=== PATIENT | female | born 1965 | race African-American/Black ===

== ENCOUNTER 2017-03-25 12:24 | Inpatient (IN) | payer OTHER ==
[2017-03-25 13:56] VITALS: BMI 21.2
--- NOTE | 2017-03-25 15:45 | HP ---
Admission [facility] Chief Complaint: I need help to stop drug use and im tired of this life I lead Allergies/Adverse Reactions: Allergies Allergy/AdvReac Type Severity Reaction Status Date / Time Fish Containing Products Allergy Severe Hives Verified 03/25/17 15:00 shellfish derived Allergy Severe Hives Verified 03/25/17 15:00 turkey Allergy Severe Hives Verified 03/25/17 15:00 No Known Drug Allergies Allergy Verified 03/25/17 15:00 ham Allergy Severe Hives Uncoded 03/25/17 15:00 History of Present Illness: 51 y/ o f pt on MMtp abusing heroin and crack. Exam Limitations: No Limitations - Ebola screening Have you traveled outside of the country in the last 21 days: No Have you had contact with anyone from an Ebola affected area: No Have you been sick,other than usual withdrawal symptoms: No Do you have a fever: No - Review of Systems Constitutional: Malaise, Night Sweats, Changes in sleep, Unintentional Wgt. Loss (30 lbs x 3 months) EENT: reports: Blurred Vision, Hearing Loss (on left) Respiratory: reports: Wheezing Cardiac: reports: No Symptoms Reported GI: reports: Abdominal cramping : reports: No Symptoms Reported Musculoskeletal: reports: Muscle Pain Integumentary: reports: Other (many small scars) Neuro: reports: Headache (migraines), Numbness, Paresthesia (hands) Endocrine: reports: No Symptoms Reported Hematology: reports: No Symptoms Reported Psychiatric: reports: Anxious, Depressed Other Systems: Reviewed and Negative Patient History - Patient Medical History Hx Anemia: Yes Hx Asthma: Yes Hx Chronic Obstructive Pulmonary Disease (COPD): No Hx Cancer: No Hx Cardiac Disorders: No Hx Congestive Heart Failure: No Hx Hypertension: No Hx Hypercholesterolemia: No Hx Pacemaker: No HX Cerebrovascular Accident: No Hx Seizures: No Hx Dementia: No Hx Diabetes: No Hx Gastrointestinal Disorders: No Hx Liver Disease: No Hx Genitourinary Disorders: No Hx Sexually Transmitted Disorders: No Hx Renal Disease (ESRD): No Hx Thyroid Disease: Yes (goiter ) Hx Human Immunodeficiency Virus (HIV): No Hx Hepatitis C: No Hx Depression: Yes Hx Suicide Attempt: No Hx Bipolar Disorder: No Hx Schizophrenia: No - Patient Surgical History Past Surgical History: No - PPD History Documented Results: Negative w/o proof PPD to be Administered?: Yes - Reproductive History Patient is a Female of Child Bearing Age (11 -55 yrs old): Yes Last Menstrual Period: 03/11/17 Patient : No - Smoking Cessation Smoking history: Current every day smoker Have you smoked in the past 12 months: Yes Aproximately how many cigarettes per day: 10 Cigars Per Day: 0 Hx Chewing Tobacco Use: No Initiated information on smoking cessation: Yes 'Breaking Loose' booklet given: 03/25/17 - Substance & Tx. History Hx Alcohol Use: No Hx Substance Use: Yes Substance Use Type: Cocaine, Heroin Hx Substance Use Treatment: Yes - Substances Abused Crack Route: Smoking Frequency: Daily Amount used: $300./week Age of first use: 23 Date of Last Use: 03/24/17 Family Disease History - Family Disease History Family History: Denies Admission Physical Exam S - Vital Signs Vital Signs: Vital Signs - 24 hr 03/25/17 13:54 Temperature 98.4 F Pulse Rate 54 L Respiratory 18 Rate Blood Pressure 88/51 51 y/o f pt aox3 , ambulating in nad , - Physical General Appearance: Yes: Appropriately Dressed, Thin HEENTM: Yes: Normocephalic, Normal Voice, MADDY, Hearing Decreased (on left) Respiratory: Yes: Chest Non-Tender, Lungs Clear, Normal Breath Sounds, No Respiratory Distress Neck: Yes: Supple Breast: Yes: Breast Exam Deferred Cardiology: Yes: Regular Rhythm, Regular Rate, S1, S2 Abdominal: Yes: Normal Bowel Sounds, Non Tender, Flat, Soft Genitourinary: Yes: Within Normal Limits Back: Yes: Decreased Range of Motion, Muscle Spasm Musculoskeletal: Yes: Back pain, Muscle Pain Extremities: Yes: Within Normal Limits Neurological: Yes: dance entertainer II-XII NML intact, Fully Oriented, Alert, Motor Strength 5/5, Normal Response, Numbness Integumentary: Yes: Within Normal Limits Lymphatic: Yes: Within Normal Limits - Diagnostic (1) Crack cocaine use Current Visit: Yes Status: Chronic (2) Heroin abuse Current Visit: Yes Status: Chronic (3) Methadone maintenance therapy patient Current Visit: Yes Status: Chronic (4) Back ache Current Visit: Yes Status: Chronic Qualifiers: Back pain laterality: bilateral (5) H/O: iron deficiency anemia Current Visit: Yes Status: Chronic (6) Nicotine dependence Current Visit: Yes Status: Chronic Qualifiers: Nicotine product type: cigarettes Substance use status: uncomplicated Qualified Code(s): F17.210 - Nicotine dependence, cigarettes, uncomplicated Cleared for Admission [facility] - Detox or Rehab Claeared for Rehab Admission: Yes S Breath Alcohol Content Breath Alcohol Content: 0 Urine Pregancy Test - Result Urine Test Results: Negative- NO Line Present Urine Drug Screen - Results Drug Screen Negative: No Urine Drug Screen Results: THC-Marijuana, KWADWO-Cocaine, OPI-Opiates, MTD- Methadone
[2017-03-25] MEDS ORDERED: MENTHOL/PHENOL 1 EACH UD MM PRN (15:55)
[2017-03-25] MEDS ORDERED: MAGNESIUM CITRATE 300 ML BOTTLE PO PRN (15:55)
[2017-03-25] MEDS ORDERED: P-EPHED 60MG/TRIPROLIDI 2.5MG TABLET PO PRN (15:55)
[2017-03-25] MEDS ORDERED: MAG HYDROX/AL HYDROX/SIMETH 30 ML UNIT-DOSE CUP PO PRN (15:55)
[2017-03-25] MEDS ORDERED: NICOTINE POLACRILEX 4 MG GUM BC PRN (15:55)
[2017-03-25] MEDS ORDERED: hydrOXYzine PAMOATE 25 MG CAPSULE (FP) PO PRN (15:55)
[2017-03-25] MEDS ORDERED: guaiFENesin/D-METHORPHAN HB 10 ML UNIT-DOSE CUPS PO PRN (15:55)
[2017-03-25] MEDS ORDERED: LOPERAMIDE HCL 2 MG CAPSULE PO PRN (15:55)
[2017-03-25] MEDS ORDERED: TUBERCULIN PPD 5 TU/0.1ML VIAL ID ONE (18:42)
[2017-03-25] MEDS: THIAMINE HCL 100 MG TABLET (FP) PO SCH (21:37)
[2017-03-25 23:23] LABS: URINE APPEARANCE CLEAR; URINE BILIRUBIN NEGATIVE (NEGATIVE); URINE BLOOD NEGATIVE (NEGATIVE); URINE COLOR LTYELLOW; URINE GLUCOSE (UA) NEGATIVE (NEGATIVE); URINE KETONE NEGATIVE (NEGATIVE); URINE NITRITE NEGATIVE (NEGATIVE); URINE PROTEIN NEGATIVE (NEGATIVE); URINE UROBILINOGEN NEGATIVE E.U./dl (0.2-1.0)
[2017-03-25 23:26] LABS: URINE LEUK ESTERASE TRACE (NEGATIVE)
[2017-03-25 23:28] LABS: URINE BACTERIA RARE /hpf (NONE SEEN); URINE RBC 1 /hpf (0-3); URINE WBC 2 /hpf (3-5)
[2017-03-26] MEDS ORDERED: METHADONE HCL 10 MG TABLET PO SCH (07:45)
[2017-03-26] MEDS ORDERED: METHADONE HCL 10 MG TABLET ONE (07:56)
[2017-03-26] MEDS ORDERED: METHADONE HCL 40 MG DISPERSABLE TABLET ONE (07:56)
[2017-03-26] MEDS: METHADONE 80 MG, METHADONE 10 MG PO SCH (07:57)
[2017-03-26 10:14] LABS: MCH 21.5 pg (25.7-33.7); MCHC 29.7 g/dl (32.0-36.0); MEAN CELL VOLUME 72.5 fl (80-96); MEAN PLT VOLUME 8.3 fl (7.5-11.1); PLATELET COUNT 240 K/MM3 (134-434); RDW 21.2 % (11.6-15.6); WHITE BLOOD COUNT 5.6 K/mm3 (4.0-10.0)
[2017-03-26] MEDS: PRENATAL VITAMINS W/ FOLIC ACID TABLET (FP) PO SCH (10:19)
[2017-03-26] MEDS: NICOTINE 21 MG/24 HOURS TOPICAL PATCH TD SCH (10:20)
[2017-03-26 10:51] LABS: CALCIUM 8.4 mg/dL (8.5-10.1)
[2017-03-26 10:58] LABS: ALBUMIN 3.2 g/dl (3.4-5.0); ALK PHOS 53 U/L (45-117); ANION GAP 6 (8-16); BILIRUBIN,TOTAL 0.2 mg/dL (0.2-1.0); CO2 29 mmol/L (21-32); COCKROFT - GAULT 64.1835; CREATININE 0.9 mg/dL (0.55-1.02); GLUCOSE,RANDOM 79 mg/dL (74-106); SGOT/AST 15 U/L (15-37); SGPT/ALT 12 U/L (12-78); TOT PROT 6.6 g/dl (6.4-8.2)
[2017-03-26 11:24] LABS: HIV 1 & 2 AB NEGATIVE; HIV 1 AGp24 NEGATIVE
[2017-03-26 13:39] LABS: HYPOCHROMIA 3+; MICROCYTOSIS 1+; TARGET CELLS 1+
[2017-03-26] MEDS: DOCUSATE SODIUM 100 MG CAPSULE (FP) PO SCH ×2 (13:52→21:43)
[2017-03-26] MEDS: FERROUS SO4 325 MG TABLET (FP) PO SCH (17:25)
[2017-03-26] MEDS: IBUPROFEN 400 MG TABLET (FP) PO PRN (18:48)
[2017-03-26] MEDS: THIAMINE HCL 100 MG TABLET (FP) PO SCH (21:42)
[2017-03-27] MEDS ORDERED: METHADONE HCL 40 MG DISPERSABLE TABLET ONE (03:20)
[2017-03-27] MEDS ORDERED: METHADONE HCL 10 MG TABLET ONE (03:20)
[2017-03-27] MEDS: METHADONE 80 MG, METHADONE 10 MG PO SCH (06:42)
[2017-03-27] MEDS: FERROUS SO4 325 MG TABLET (FP) PO SCH ×3 (07:02→17:25)
[2017-03-27] MEDS: IBUPROFEN 400 MG TABLET (FP) PO PRN ×2 (07:02→12:18)
--- NOTE | 2017-03-27 08:26 | EKG ---
Test Reason : Blood Pressure : / mmHG Vent. Rate : 060 BPM Atrial Rate : 061 BPM P-R Int : 134 ms QRS Dur : 084 ms QT Int : 448 ms P-R-T Axes : 068 067 056 degrees QTc Int : 448 ms NORMAL SINUS RHYTHM NORMAL ECG NO PREVIOUS ECGS AVAILABLE Confirmed by AYDIN BROWN MD ([id number]) on 03/27/2017 8:25:44 AM Referred By: Confirmed By:AYDIN BROWN MD
[2017-03-27] MEDS: DOCUSATE SODIUM 100 MG CAPSULE (FP) PO SCH ×2 (09:41→21:32)
[2017-03-27] MEDS: NICOTINE 21 MG/24 HOURS TOPICAL PATCH TD SCH (09:41)
[2017-03-27] MEDS: PRENATAL VITAMINS W/ FOLIC ACID TABLET (FP) PO SCH (09:41)
[2017-03-27] MEDS: ACETAMINOPHEN 325 MG TABLET (FP) PO PRN (09:42)
[2017-03-27] MEDS: LIDOCAINE 5% TOPICAL PATCH TP SCH (15:34)
[2017-03-27] MEDS: THIAMINE HCL 100 MG TABLET (FP) PO SCH (21:32)
[2017-03-28] MEDS: METHADONE HCL 40 MG DISPERSABLE TABLET PO SCH (06:32)
[2017-03-28] MEDS: FERROUS SO4 325 MG TABLET (FP) PO SCH ×3 (07:36→17:40)
[2017-03-28] MEDS ORDERED: PT OWN MED DRAWER 7, Y5N ONE (09:07)
[2017-03-28] MEDS: DOCUSATE SODIUM 100 MG CAPSULE (FP) PO SCH ×2 (10:41→21:28)
[2017-03-28] MEDS: PRENATAL VITAMINS W/ FOLIC ACID TABLET (FP) PO SCH (10:41)
[2017-03-28] MEDS: NICOTINE 21 MG/24 HOURS TOPICAL PATCH TD SCH (10:41)
[2017-03-28] MEDS: LIDOCAINE 5% TOPICAL PATCH TP SCH (10:42)
[2017-03-28] MEDS: THIAMINE HCL 100 MG TABLET (FP) PO SCH (21:28)
[2017-03-29] MEDS: METHADONE HCL 40 MG DISPERSABLE TABLET PO SCH (06:35)
[2017-03-29] MEDS: FERROUS SO4 325 MG TABLET (FP) PO SCH ×3 (07:26→18:04)
[2017-03-29] MEDS: NICOTINE 21 MG/24 HOURS TOPICAL PATCH TD SCH (10:21)
[2017-03-29] MEDS: DOCUSATE SODIUM 100 MG CAPSULE (FP) PO SCH ×2 (10:22→21:40)
[2017-03-29] MEDS: PRENATAL VITAMINS W/ FOLIC ACID TABLET (FP) PO SCH (10:22)
[2017-03-29] MEDS: LIDOCAINE 5% TOPICAL PATCH TP SCH (10:22)
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
[2017-03-29] MEDS: diphenhydrAMINE HCL 50 MG CAPSULE PO PRN (21:40)
[2017-03-29] MEDS: THIAMINE HCL 100 MG TABLET (FP) PO SCH (21:40)
[2017-03-29] MEDS: QUEtiapine FUMARATE 50 MG TABLET PO SCH (21:40)
[2017-03-30] MEDS: METHADONE HCL 40 MG DISPERSABLE TABLET PO SCH (06:26)
[2017-03-30] MEDS: FERROUS SO4 325 MG TABLET (FP) PO SCH ×3 (07:23→21:33)
[2017-03-30] MEDS: PRENATAL VITAMINS W/ FOLIC ACID TABLET (FP) PO SCH (10:08)
[2017-03-30] MEDS: NICOTINE 21 MG/24 HOURS TOPICAL PATCH TD SCH (10:09)
[2017-03-30] MEDS: DOCUSATE SODIUM 100 MG CAPSULE (FP) PO SCH ×2 (10:09→17:25)
[2017-03-30] MEDS: LIDOCAINE 5% TOPICAL PATCH TP SCH (10:09)
[2017-03-30] MEDS: QUEtiapine FUMARATE 50 MG TABLET PO SCH (21:32)
[2017-03-30] MEDS: THIAMINE HCL 100 MG TABLET (FP) PO SCH (21:32)
[2017-03-30] MEDS: diphenhydrAMINE HCL 50 MG CAPSULE PO PRN (21:32)
[2017-03-31] MEDS: METHADONE HCL 40 MG DISPERSABLE TABLET PO SCH (06:34)
[2017-03-31] MEDS: FERROUS SO4 325 MG TABLET (FP) PO SCH ×3 (07:03→17:30)
[2017-03-31] MEDS: LIDOCAINE 5% TOPICAL PATCH TP SCH (10:11)
[2017-03-31] MEDS: PRENATAL VITAMINS W/ FOLIC ACID TABLET (FP) PO SCH (10:11)
[2017-03-31] MEDS: DOCUSATE SODIUM 100 MG CAPSULE (FP) PO SCH ×2 (10:11→21:32)
[2017-03-31] MEDS: NICOTINE 21 MG/24 HOURS TOPICAL PATCH TD SCH (10:11)
[2017-03-31] MEDS: QUEtiapine FUMARATE 50 MG TABLET PO SCH (21:32)
[2017-03-31] MEDS: THIAMINE HCL 100 MG TABLET (FP) PO SCH (21:32)
[2017-03-31] MEDS: diphenhydrAMINE HCL 50 MG CAPSULE PO PRN (21:32)
[2017-04-01] MEDS: METHADONE HCL 40 MG DISPERSABLE TABLET PO SCH (06:21)
[2017-04-01] MEDS: IBUPROFEN 400 MG TABLET (FP) PO PRN (07:16)
[2017-04-01] MEDS: FERROUS SO4 325 MG TABLET (FP) PO SCH ×3 (07:16→17:25)
[2017-04-01] MEDS: PRENATAL VITAMINS W/ FOLIC ACID TABLET (FP) PO SCH (10:17)
[2017-04-01] MEDS: NICOTINE 21 MG/24 HOURS TOPICAL PATCH TD SCH (10:17)
[2017-04-01] MEDS: LIDOCAINE 5% TOPICAL PATCH TP SCH (10:17)
[2017-04-01] MEDS: DOCUSATE SODIUM 100 MG CAPSULE (FP) PO SCH ×2 (10:17→21:20)
[2017-04-01] MEDS: QUEtiapine FUMARATE 50 MG TABLET PO SCH (21:20)
[2017-04-01] MEDS: THIAMINE HCL 100 MG TABLET (FP) PO SCH (21:21)
[2017-04-01] MEDS: diphenhydrAMINE HCL 50 MG CAPSULE PO PRN (21:21)
[2017-04-02] MEDS: METHADONE HCL 40 MG DISPERSABLE TABLET PO SCH (06:24)
[2017-04-02] MEDS: FERROUS SO4 325 MG TABLET (FP) PO SCH ×3 (07:32→18:26)
[2017-04-02] MEDS: DOCUSATE SODIUM 100 MG CAPSULE (FP) PO SCH ×2 (09:58→21:28)
[2017-04-02] MEDS: PRENATAL VITAMINS W/ FOLIC ACID TABLET (FP) PO SCH (09:58)
[2017-04-02] MEDS: LIDOCAINE 5% TOPICAL PATCH TP SCH (09:58)
[2017-04-02] MEDS: NICOTINE 21 MG/24 HOURS TOPICAL PATCH TD SCH (09:59)
[2017-04-02] MEDS: QUEtiapine FUMARATE 50 MG TABLET PO SCH (21:28)
[2017-04-02] MEDS: THIAMINE HCL 100 MG TABLET (FP) PO SCH (21:28)
[2017-04-03] MEDS: METHADONE HCL 40 MG DISPERSABLE TABLET PO SCH (06:25)
[2017-04-03] MEDS: FERROUS SO4 325 MG TABLET (FP) PO SCH ×3 (07:32→17:20)
[2017-04-03] MEDS: NICOTINE 21 MG/24 HOURS TOPICAL PATCH TD SCH (10:06)
[2017-04-03] MEDS: LIDOCAINE 5% TOPICAL PATCH TP SCH (10:06)
[2017-04-03] MEDS: PRENATAL VITAMINS W/ FOLIC ACID TABLET (FP) PO SCH (10:06)
[2017-04-03] MEDS: DOCUSATE SODIUM 100 MG CAPSULE (FP) PO SCH ×3 (10:06→21:22)
[2017-04-03] MEDS: IBUPROFEN 600 MG TABLET (FP) PO PRN (13:30)
[2017-04-03] MEDS: SENNOSIDES 8.6MG TABLET (FP) PO SCH ×2 (14:21→21:22)
[2017-04-03] MEDS: QUEtiapine FUMARATE 50 MG TABLET PO SCH (21:22)
[2017-04-03] MEDS: THIAMINE HCL 100 MG TABLET (FP) PO SCH (21:22)
[2017-04-04] MEDS: METHADONE HCL 40 MG DISPERSABLE TABLET PO SCH (06:36)
[2017-04-04] MEDS: DOCUSATE SODIUM 100 MG CAPSULE (FP) PO SCH ×3 (06:37→21:29)
[2017-04-04] MEDS: FERROUS SO4 325 MG TABLET (FP) PO SCH ×3 (07:06→16:46)
[2017-04-04] MEDS: LIDOCAINE 5% TOPICAL PATCH TP SCH (10:02)
[2017-04-04] MEDS: NICOTINE 21 MG/24 HOURS TOPICAL PATCH TD SCH (10:02)
[2017-04-04] MEDS: PRENATAL VITAMINS W/ FOLIC ACID TABLET (FP) PO SCH (10:02)
[2017-04-04] MEDS: SENNOSIDES 8.6MG TABLET (FP) PO SCH ×2 (10:03→21:29)
[2017-04-04] MEDS: QUEtiapine FUMARATE 50 MG TABLET PO SCH (21:29)
[2017-04-04] MEDS: THIAMINE HCL 100 MG TABLET (FP) PO SCH (21:29)
[2017-04-05] MEDS: METHADONE HCL 40 MG DISPERSABLE TABLET PO SCH (07:07)
[2017-04-05] MEDS: FERROUS SO4 325 MG TABLET (FP) PO SCH ×3 (07:08→17:30)
[2017-04-05] MEDS: DOCUSATE SODIUM 100 MG CAPSULE (FP) PO SCH ×3 (07:08→21:29)
[2017-04-05] MEDS: SENNOSIDES 8.6MG TABLET (FP) PO SCH ×2 (10:03→21:29)
[2017-04-05] MEDS: PRENATAL VITAMINS W/ FOLIC ACID TABLET (FP) PO SCH (10:03)
[2017-04-05] MEDS: LIDOCAINE 5% TOPICAL PATCH TP SCH (10:03)
[2017-04-05] MEDS: NICOTINE 21 MG/24 HOURS TOPICAL PATCH TD SCH (10:03)
[2017-04-05] MEDS: THIAMINE HCL 100 MG TABLET (FP) PO SCH (21:29)
[2017-04-05] MEDS: QUEtiapine FUMARATE 50 MG TABLET PO SCH (21:29)
[2017-04-06] MEDS: METHADONE HCL 40 MG DISPERSABLE TABLET PO SCH (06:43)
[2017-04-06] MEDS: DOCUSATE SODIUM 100 MG CAPSULE (FP) PO SCH ×3 (06:44→21:26)
[2017-04-06] MEDS: FERROUS SO4 325 MG TABLET (FP) PO SCH ×3 (07:15→17:25)
[2017-04-06] MEDS: LIDOCAINE 5% TOPICAL PATCH TP SCH (09:32)
[2017-04-06] MEDS: NICOTINE 21 MG/24 HOURS TOPICAL PATCH TD SCH (09:32)
[2017-04-06] MEDS: PRENATAL VITAMINS W/ FOLIC ACID TABLET (FP) PO SCH (09:32)
[2017-04-06] MEDS: SENNOSIDES 8.6MG TABLET (FP) PO SCH ×2 (09:33→21:26)
[2017-04-06] MEDS ORDERED: PT OWN MED DRAWER 7, Y5N ONE (10:12)
[2017-04-06] MEDS: THIAMINE HCL 100 MG TABLET (FP) PO SCH (21:27)
[2017-04-06] MEDS: QUEtiapine FUMARATE 50 MG TABLET PO SCH (21:27)
[2017-04-07] MEDS: METHADONE HCL 40 MG DISPERSABLE TABLET PO SCH (06:26)
[2017-04-07] MEDS: DOCUSATE SODIUM 100 MG CAPSULE (FP) PO SCH ×3 (06:27→21:42)
[2017-04-07] MEDS: FERROUS SO4 325 MG TABLET (FP) PO SCH ×3 (07:33→16:55)
[2017-04-07] MEDS: SENNOSIDES 8.6MG TABLET (FP) PO SCH ×2 (09:36→21:42)
[2017-04-07] MEDS: PRENATAL VITAMINS W/ FOLIC ACID TABLET (FP) PO SCH (09:36)
[2017-04-07] MEDS: NICOTINE 21 MG/24 HOURS TOPICAL PATCH TD SCH (09:36)
[2017-04-07] MEDS: LIDOCAINE 5% TOPICAL PATCH TP SCH (09:37)
[2017-04-07] MEDS ORDERED: PT OWN MED DRAWER 7, Y5N ONE (10:18)
[2017-04-07] MEDS: THIAMINE HCL 100 MG TABLET (FP) PO SCH (21:42)
[2017-04-07] MEDS: diphenhydrAMINE HCL 50 MG CAPSULE PO PRN (21:42)
[2017-04-07] MEDS: QUEtiapine FUMARATE 50 MG TABLET PO SCH (21:42)
[2017-04-08] MEDS: METHADONE HCL 40 MG DISPERSABLE TABLET PO SCH (06:24)
[2017-04-08] MEDS: DOCUSATE SODIUM 100 MG CAPSULE (FP) PO SCH ×3 (06:25→21:20)
[2017-04-08] MEDS ORDERED: PT OWN MED DRAWER 7, Y5N ONE (07:16)
[2017-04-08] MEDS: FERROUS SO4 325 MG TABLET (FP) PO SCH ×3 (07:17→17:20)
[2017-04-08] MEDS: PRENATAL VITAMINS W/ FOLIC ACID TABLET (FP) PO SCH (10:11)
[2017-04-08] MEDS: SENNOSIDES 8.6MG TABLET (FP) PO SCH ×2 (10:11→21:20)
[2017-04-08] MEDS: NICOTINE 21 MG/24 HOURS TOPICAL PATCH TD SCH (10:12)
[2017-04-08] MEDS: LIDOCAINE 5% TOPICAL PATCH TP SCH (10:12)
[2017-04-08] MEDS: ACETAMINOPHEN 325 MG TABLET (FP) PO PRN (10:13)
[2017-04-08] MEDS: IBUPROFEN 600 MG TABLET (FP) PO PRN (13:38)
[2017-04-08] MEDS: diphenhydrAMINE HCL 50 MG CAPSULE PO PRN (21:20)
[2017-04-08] MEDS: THIAMINE HCL 100 MG TABLET (FP) PO SCH (21:20)
[2017-04-08] MEDS: QUEtiapine FUMARATE 50 MG TABLET PO SCH (21:20)
[2017-04-09] MEDS: DOCUSATE SODIUM 100 MG CAPSULE (FP) PO SCH ×3 (06:35→21:37)
[2017-04-09] MEDS: METHADONE HCL 40 MG DISPERSABLE TABLET PO SCH (06:35)
[2017-04-09] MEDS: FERROUS SO4 325 MG TABLET (FP) PO SCH ×3 (07:14→17:20)
[2017-04-09] MEDS: NICOTINE 21 MG/24 HOURS TOPICAL PATCH TD SCH (10:06)
[2017-04-09] MEDS: LIDOCAINE 5% TOPICAL PATCH TP SCH (10:06)
[2017-04-09] MEDS: PRENATAL VITAMINS W/ FOLIC ACID TABLET (FP) PO SCH (10:07)
[2017-04-09] MEDS: SENNOSIDES 8.6MG TABLET (FP) PO SCH ×2 (10:07→21:37)
[2017-04-09] MEDS ORDERED: PT OWN MED DRAWER 7, Y5N ONE (10:35)
[2017-04-09] MEDS: THIAMINE HCL 100 MG TABLET (FP) PO SCH (21:37)
[2017-04-09] MEDS: diphenhydrAMINE HCL 50 MG CAPSULE PO PRN (21:38)
[2017-04-09] MEDS: QUEtiapine FUMARATE 50 MG TABLET PO SCH (21:38)
[2017-04-10] MEDS: METHADONE HCL 40 MG DISPERSABLE TABLET PO SCH (06:52)
[2017-04-10] MEDS: DOCUSATE SODIUM 100 MG CAPSULE (FP) PO SCH ×3 (06:52→21:30)
[2017-04-10] MEDS: FERROUS SO4 325 MG TABLET (FP) PO SCH ×3 (07:41→17:25)
[2017-04-10] MEDS: SENNOSIDES 8.6MG TABLET (FP) PO SCH ×2 (10:01→21:30)
[2017-04-10] MEDS: LIDOCAINE 5% TOPICAL PATCH TP SCH (10:01)
[2017-04-10] MEDS: NICOTINE 21 MG/24 HOURS TOPICAL PATCH TD SCH (10:02)
[2017-04-10] MEDS: PRENATAL VITAMINS W/ FOLIC ACID TABLET (FP) PO SCH (10:02)
--- NOTE | 2017-04-10 15:15 | PN ---
Psychiatric Progress Note Vital Signs: Vital Signs Period Temp Pulse Resp BP Sys/Deshpande Pulse Ox Last 24 Hr 97.3 F 62 16-18 107/69 Date of Session: 04/10/17 Chief Complaint:: Kwaku hearing voices on and off,it makes me feel anxious." HPI: Opioid,Cocaine dependence comorbid with PTSD,Substance induced mood/ psychotic disoder. ROS: Significant for Iron deficiency anemia. Current Medications: Active Medications Generic Name Dose Route Start Last Admin Trade Name Esteban PRN Reason Stop Dose Admin Acetaminophen 650 mg 03/25/17 15:55 04/08/17 10:13 Tylenol - PO 650 mg Q4H PRN Administration PAIN Al Hydroxide/Mg Hydroxide 30 ml 03/25/17 15:55 03/29/17 07:54 Mylanta Oral Suspension - PO 30 ml Q6H PRN Administration DYSPEPSIA Diphenhydramine HCl 50 mg 03/25/17 15:55 04/09/17 21:38 Benadryl - PO 50 mg HSMR1 PRN Administration INSOMNIA Docusate Sodium 100 mg 04/03/17 14:00 04/10/17 13:08 Colace - PO 100 mg TID KISHA Administration Eucalyptus/Menthol/Phenol/Sorbitol 1 each 03/25/17 15:55 Cepastat Lozenge - MM Q4H PRN SORE THROAT Ferrous Sulfate 325 mg 03/26/17 17:30 04/10/17 12:06 Feosol - PO 325 mg TIDCM KISHA Administration Guaifenesin 10 ml 03/25/17 15:55 Robitussin Dm - PO Q6H PRN COUGH Hydroxyzine Pamoate 25 mg 03/25/17 15:55 Vistaril - PO Q4H PRN AGITATION Ibuprofen 600 mg 04/01/17 15:34 04/08/17 13:38 Motrin - PO 600 mg Q6H PRN Administration SEVERE PAIN Lidocaine 1 patch 03/27/17 14:30 04/10/17 10:01 Lidoderm Patch - TP 1 patch DAILY KISHA Administration Loperamide HCl 4 mg 03/25/17 15:55 Imodium - PO Q6H PRN DIARRHEA Magnesium Citrate 300 ml 03/25/17 15:55 Citroma - PO Q48H PRN CONSTIPATION Magnesium Hydroxide 30 ml 03/25/17 15:55 Milk Of Magnesia - PO DAILY PRN CONSTIPATION Methadone HCl 80 mg 04/11/17 06:00 Dolophine - PO 04/18/17 05:59 DAILY@0600 KISHA Nicotine 21 mg 03/26/17 10:00 04/10/17 10:02 Nicoderm Patch - TD 21 mg DAILY KISHA Administration Nicotine Polacrilex 4 mg 03/25/17 15:55 Nicorette Gum - BC Q2H PRN NICOTINE REPLACEMENT RX Multivit/Folic Acid/Iron 1 tab 03/26/17 10:00 04/10/17 10:02 Vitamins (Sjr) - PO 1 tab DAILY KISHA Administration Pseudoephedrine/Triprolidine 1 combo 03/25/17 15:55 Actifed - PO TID PRN NASAL CONGESTION Quetiapine Fumarate 50 mg 03/29/17 22:00 04/09/17 21:38 Seroquel - PO Not Given HS KISHA Senna 1 tab 04/03/17 14:00 04/10/17 10:01 Senna - PO 1 tab BID KISHA Administration Thiamine HCl 100 mg 03/25/17 22:00 04/09/17 21:37 Vitamin B1 - PO 100 mg HS KISHA Administration Current Side Effect: No Lab tests ordered: No Lab tests reviewed: Yes Provider note:: Chart was revuewed,patient was seen in my office,treatment plan and medication management has been discussed with the patient.Patient will continue Seroquel 50 mg po hs.Properties of Risperidone has been discussed with the patient.Start Risperidone 0,5 mg po bid today. Supportive therapy provided. Total face to face time:: 30 Mental Status Exam - Mental Status Exam Alert and Oriented to: Time, Place, Person Cognitive Function: Grossly Intact Patient Appearance: Unkempt Mood: Anxious Affect: Mood Congruent, Labile Patient Behavior: Cooperative Speech Pattern: Clear Voice Loudness: Normal Thought Process: Goal Oriented Thought Disorder: Being Controlled Hallucinations: Auditory Suicidal Ideation: Denies Homicidal Ideation: Denies Insight/Judgement: Fair Sleep: Fair Appetite: Good Muscle strength/Tone: Normal Gait/Station: Normal Psychiatric Treatment Plan - Problem List (1) H/O: iron deficiency anemia Current Visit: Yes (2) Methadone maintenance therapy patient Current Visit: Yes (3) Nicotine dependence Current Visit: Yes Qualifiers: Nicotine product type: cigarettes Substance use status: uncomplicated Qualified Code(s): F17.210 - Nicotine dependence, cigarettes, uncomplicated (4) Cocaine dependence Current Visit: Yes (5) PTSD (post-traumatic stress disorder) Current Visit: Yes (6) Opioid dependence Current Visit: Yes
[2017-04-10] MEDS: risperiDONE 0.5 MG TABLET (FP) PO SCH ×2 (15:29→21:32)
[2017-04-10] MEDS: QUEtiapine FUMARATE 50 MG TABLET PO SCH (21:30)
[2017-04-10] MEDS: THIAMINE HCL 100 MG TABLET (FP) PO SCH (21:30)
[2017-04-11] MEDS: METHADONE HCL 40 MG DISPERSABLE TABLET PO SCH (06:45)
[2017-04-11] MEDS: DOCUSATE SODIUM 100 MG CAPSULE (FP) PO SCH ×3 (06:45→21:22)
[2017-04-11] MEDS: FERROUS SO4 325 MG TABLET (FP) PO SCH ×3 (07:42→18:04)
[2017-04-11] MEDS: LIDOCAINE 5% TOPICAL PATCH TP SCH (10:03)
[2017-04-11] MEDS: NICOTINE 21 MG/24 HOURS TOPICAL PATCH TD SCH (10:04)
[2017-04-11] MEDS: PRENATAL VITAMINS W/ FOLIC ACID TABLET (FP) PO SCH (10:04)
[2017-04-11] MEDS: risperiDONE 0.5 MG TABLET (FP) PO SCH ×2 (10:04→21:23)
[2017-04-11] MEDS: SENNOSIDES 8.6MG TABLET (FP) PO SCH ×2 (10:05→21:22)
[2017-04-11] MEDS ORDERED: PT OWN MED DRAWER 7, Y5N ONE (10:39)
[2017-04-11] MEDS: QUEtiapine FUMARATE 50 MG TABLET PO SCH (21:22)
[2017-04-11] MEDS: THIAMINE HCL 100 MG TABLET (FP) PO SCH (21:22)
[2017-04-11] MEDS: diphenhydrAMINE HCL 50 MG CAPSULE PO PRN (21:23)
[2017-04-12] MEDS: METHADONE HCL 40 MG DISPERSABLE TABLET PO SCH (06:11)
[2017-04-12] MEDS: DOCUSATE SODIUM 100 MG CAPSULE (FP) PO SCH ×3 (06:12→21:39)
[2017-04-12] MEDS: FERROUS SO4 325 MG TABLET (FP) PO SCH ×3 (07:32→17:35)
[2017-04-12] MEDS: PRENATAL VITAMINS W/ FOLIC ACID TABLET (FP) PO SCH (10:21)
[2017-04-12] MEDS: LIDOCAINE 5% TOPICAL PATCH TP SCH (10:22)
[2017-04-12] MEDS: risperiDONE 0.5 MG TABLET (FP) PO SCH ×2 (10:22→21:39)
[2017-04-12] MEDS: NICOTINE 21 MG/24 HOURS TOPICAL PATCH TD SCH (10:22)
[2017-04-12] MEDS: SENNOSIDES 8.6MG TABLET (FP) PO SCH ×2 (10:22→21:39)
[2017-04-12] MEDS ORDERED: LACTULOSE 20 GM/30 ML UDC (FOR ORAL USE ONLY) PO ONE (13:34)
[2017-04-12] MEDS: THIAMINE HCL 100 MG TABLET (FP) PO SCH (21:39)
[2017-04-12] MEDS: QUEtiapine FUMARATE 50 MG TABLET PO SCH (21:39)
[2017-04-13] MEDS: METHADONE HCL 40 MG DISPERSABLE TABLET PO SCH (06:32)
[2017-04-13] MEDS: DOCUSATE SODIUM 100 MG CAPSULE (FP) PO SCH ×3 (06:32→21:34)
[2017-04-13] MEDS: FERROUS SO4 325 MG TABLET (FP) PO SCH ×3 (07:04→17:25)
[2017-04-13] MEDS: COLLOIDAL OATMEAL 1 BAR EACH TP PRN (07:16)
[2017-04-13] MEDS: SENNOSIDES 8.6MG TABLET (FP) PO SCH ×2 (09:56→21:34)
[2017-04-13] MEDS: PRENATAL VITAMINS W/ FOLIC ACID TABLET (FP) PO SCH (09:56)
[2017-04-13] MEDS: risperiDONE 0.5 MG TABLET (FP) PO SCH ×2 (09:56→21:35)
[2017-04-13] MEDS: NICOTINE 21 MG/24 HOURS TOPICAL PATCH TD SCH (09:57)
[2017-04-13] MEDS: LIDOCAINE 5% TOPICAL PATCH TP SCH (09:57)
[2017-04-13] MEDS: THIAMINE HCL 100 MG TABLET (FP) PO SCH (21:34)
[2017-04-13] MEDS: QUEtiapine FUMARATE 50 MG TABLET PO SCH (21:34)
[2017-04-13] MEDS: diphenhydrAMINE HCL 50 MG CAPSULE PO PRN (21:35)
[2017-04-13] MEDS ORDERED: PT OWN MED DRAWER 7, Y5N ONE (21:36)
[2017-04-14] MEDS: METHADONE HCL 40 MG DISPERSABLE TABLET PO SCH (06:52)
[2017-04-14] MEDS: DOCUSATE SODIUM 100 MG CAPSULE (FP) PO SCH ×3 (06:52→21:36)
[2017-04-14] MEDS: FERROUS SO4 325 MG TABLET (FP) PO SCH ×3 (07:00→17:25)
[2017-04-14] MEDS: SENNOSIDES 8.6MG TABLET (FP) PO SCH ×2 (09:56→21:37)
[2017-04-14] MEDS: LIDOCAINE 5% TOPICAL PATCH TP SCH (09:56)
[2017-04-14] MEDS: risperiDONE 0.5 MG TABLET (FP) PO SCH ×2 (09:56→21:36)
[2017-04-14] MEDS: PRENATAL VITAMINS W/ FOLIC ACID TABLET (FP) PO SCH (09:56)
[2017-04-14] MEDS: NICOTINE 21 MG/24 HOURS TOPICAL PATCH TD SCH (09:56)
[2017-04-14] MEDS: QUEtiapine FUMARATE 50 MG TABLET PO SCH (21:36)
[2017-04-14] MEDS: THIAMINE HCL 100 MG TABLET (FP) PO SCH (21:36)
[2017-04-15] MEDS: METHADONE HCL 40 MG DISPERSABLE TABLET PO SCH (06:36)
[2017-04-15] MEDS: DOCUSATE SODIUM 100 MG CAPSULE (FP) PO SCH ×3 (06:36→21:30)
[2017-04-15] MEDS: FERROUS SO4 325 MG TABLET (FP) PO SCH ×3 (07:10→17:20)
[2017-04-15] MEDS ORDERED: PT OWN MED DRAWER 7, Y5N ONE (08:15)
[2017-04-15] MEDS: NICOTINE 21 MG/24 HOURS TOPICAL PATCH TD SCH (10:03)
[2017-04-15] MEDS: LIDOCAINE 5% TOPICAL PATCH TP SCH (10:03)
[2017-04-15] MEDS: risperiDONE 0.5 MG TABLET (FP) PO SCH ×2 (10:04→21:30)
[2017-04-15] MEDS: PRENATAL VITAMINS W/ FOLIC ACID TABLET (FP) PO SCH (10:04)
[2017-04-15] MEDS: SENNOSIDES 8.6MG TABLET (FP) PO SCH ×2 (10:04→21:30)
[2017-04-15] MEDS: ACETAMINOPHEN 325 MG TABLET (FP) PO PRN (12:29)
[2017-04-15] MEDS: MAGNESIUM HYDROX 2400MG/30ML ORAL SUSPENSION 30 ML CUP PO PRN (13:15)
[2017-04-15] MEDS ORDERED: MAGNESIUM CITRATE 300 ML BOTTLE PO ONE (14:31)
--- NOTE | 2017-04-15 14:35 | PN ---
[facility] Progress Note Note: LS spine x-ray = degenerative changes continue motrin
--- NOTE | 2017-04-15 17:15 | PN ---
[id number] 80 16 121/77 Date of Session: 04/15/17 Chief Complaint:: Kwaku not sleeping well and still depressed." HPI: Patient addressed Opioid and Cocaine dependence comorbid with Substance induced mood disorder. ROS: Significant for Anemia. Current Medications: Active Medications Generic Name Dose Route Start Last Admin Trade Name Freq PRN Reason Stop Dose Admin Acetaminophen 650 mg 03/25/17 15:55 04/15/17 12:29 Tylenol - PO 650 mg Q4H PRN Administration PAIN Al Hydroxide/Mg Hydroxide 30 ml 03/25/17 15:55 03/29/17 07:54 Mylanta Oral Suspension - PO 30 ml Q6H PRN Administration DYSPEPSIA Colloidal Oatmeal 1 applic 04/13/17 06:51 04/13/17 07:16 Aveeno Soap - TP 1 applic DAILY PRN Administration HYGEINE Diphenhydramine HCl 50 mg 03/25/17 15:55 04/13/17 21:35 Benadryl - PO 50 mg HSMR1 PRN Administration INSOMNIA Docusate Sodium 100 mg 04/03/17 14:00 04/15/17 13:14 Colace - PO 100 mg TID KISHA Administration Eucalyptus/Menthol/Phenol/Sorbitol 1 each 03/25/17 15:55 04/12/17 18:47 Cepastat Lozenge - MM 1 each Q4H PRN Administration SORE THROAT Ferrous Sulfate 325 mg 03/26/17 17:30 04/15/17 12:12 Feosol - PO 325 mg TIDCM KISHA Administration Guaifenesin 10 ml 03/25/17 15:55 Robitussin Dm - PO Q6H PRN COUGH Hydroxyzine Pamoate 25 mg 03/25/17 15:55 Vistaril - PO Q4H PRN AGITATION Ibuprofen 600 mg 04/01/17 15:34 04/08/17 13:38 Motrin - PO 600 mg Q6H PRN Administration SEVERE PAIN Lidocaine 1 patch 03/27/17 14:30 04/15/17 10:03 Lidoderm Patch - TP 1 patch DAILY KISHA Administration Loperamide HCl 4 mg 03/25/17 15:55 Imodium - PO Q6H PRN DIARRHEA Magnesium Citrate 300 ml 03/25/17 15:55 Citroma - PO Q48H PRN CONSTIPATION Magnesium Hydroxide 30 ml 03/25/17 15:55 04/15/17 13:15 Milk Of Magnesia - PO 30 ml DAILY PRN Administration CONSTIPATION Methadone HCl 80 mg 04/11/17 06:00 04/15/17 06:36 Dolophine - PO 04/18/17 05:59 80 mg DAILY@0600 KISHA Administration Nicotine 21 mg 03/26/17 10:00 04/15/17 10:03 Nicoderm Patch - TD 21 mg DAILY KISHA Administration Nicotine Polacrilex 4 mg 03/25/17 15:55 Nicorette Gum - BC Q2H PRN NICOTINE REPLACEMENT RX Multivit/Folic Acid/Iron 1 tab 03/26/17 10:00 04/15/17 10:04 Vitamins (Sjr) - PO 1 tab DAILY KISHA Administration Pseudoephedrine/Triprolidine 1 combo 03/25/17 15:55 Actifed - PO TID PRN NASAL CONGESTION Risperidone 0.5 mg 04/10/17 15:15 04/15/17 10:04 Risperdal - PO 0.5 mg BID KISHA Administration Senna 1 tab 04/03/17 14:00 04/15/17 10:04 Senna - PO 1 tab BID KISHA Administration Sertraline HCl 50 mg 04/15/17 17:15 Zoloft - PO DAILY KISHA Thiamine HCl 100 mg 03/25/17 22:00 04/14/17 21:36 Vitamin B1 - PO 100 mg HS KISHA Administration Current Side Effect: No Lab tests ordered: No Lab tests reviewed: Yes Provider note:: Chart was revuewed,patient was seen and treatment plan including madication management has been discussed with the patient .Patient addressed ongoing depressed mood,some anxiety,still sleeping difficulties.She is willing to start antidepressants .properties of Zoloft has been discussed with the patient.Seroquel 50 mg po hs will be adjusted to 100 mg po hs,start Zoloft 50 mg po daily. Supportive therapy provided. Total face to face time:: 30 Mental Status Exam - Mental Status Exam Alert and Oriented to: Time, Place, Person Cognitive Function: Grossly Intact Patient Appearance: Well Groomed Mood: Anxious Affect: Mood Congruent, Labile Speech Pattern: Clear Thought Process: Goal Oriented Thought Disorder: Not Present Hallucinations: Denies Suicidal Ideation: Denies Homicidal Ideation: Denies Insight/Judgement: Fair Sleep: Difficulty falling asleep Appetite: Good Muscle strength/Tone: Normal Gait/Station: Normal Psychiatric Treatment Plan - Problem List (3) Nicotine dependence Qualifiers: Nicotine product type: cigarettes Substance use status: uncomplicated Qualified Code(s): F17.210 - Nicotine dependence, cigarettes, uncomplicated
[2017-04-15] MEDS: SERTRALINE HCL 50 MG TABLET (FP) PO SCH (17:40)
[2017-04-15] MEDS: THIAMINE HCL 100 MG TABLET (FP) PO SCH (21:30)
[2017-04-15] MEDS: QUEtiapine FUMARATE 100 MG TABLET (FP) PO SCH (21:30)
[2017-04-15] MEDS: diphenhydrAMINE HCL 50 MG CAPSULE PO PRN (21:30)
[2017-04-16] MEDS: METHADONE HCL 40 MG DISPERSABLE TABLET PO SCH (06:39)
[2017-04-16] MEDS: DOCUSATE SODIUM 100 MG CAPSULE (FP) PO SCH ×3 (06:39→21:21)
[2017-04-16] MEDS: ACETAMINOPHEN 325 MG TABLET (FP) PO PRN (06:41)
[2017-04-16] MEDS: FERROUS SO4 325 MG TABLET (FP) PO SCH ×3 (07:53→16:51)
[2017-04-16] MEDS: SENNOSIDES 8.6MG TABLET (FP) PO SCH ×2 (10:15→21:22)
[2017-04-16] MEDS: risperiDONE 0.5 MG TABLET (FP) PO SCH ×2 (10:15→21:21)
[2017-04-16] MEDS: SERTRALINE HCL 50 MG TABLET (FP) PO SCH (10:15)
[2017-04-16] MEDS: PRENATAL VITAMINS W/ FOLIC ACID TABLET (FP) PO SCH (10:15)
[2017-04-16] MEDS: NICOTINE 21 MG/24 HOURS TOPICAL PATCH TD SCH (10:16)
[2017-04-16] MEDS: LIDOCAINE 5% TOPICAL PATCH TP SCH (10:16)
[2017-04-16] MEDS: THIAMINE HCL 100 MG TABLET (FP) PO SCH (21:21)
[2017-04-16] MEDS: QUEtiapine FUMARATE 100 MG TABLET (FP) PO SCH (21:21)
[2017-04-16] MEDS: diphenhydrAMINE HCL 50 MG CAPSULE PO PRN (21:22)
[2017-04-17] MEDS: METHADONE HCL 40 MG DISPERSABLE TABLET PO SCH (06:35)
[2017-04-17] MEDS: DOCUSATE SODIUM 100 MG CAPSULE (FP) PO SCH ×3 (06:36→21:25)
[2017-04-17] MEDS: FERROUS SO4 325 MG TABLET (FP) PO SCH ×3 (07:24→17:25)
[2017-04-17] MEDS: risperiDONE 0.5 MG TABLET (FP) PO SCH ×2 (10:13→21:25)
[2017-04-17] MEDS: SERTRALINE HCL 50 MG TABLET (FP) PO SCH (10:13)
[2017-04-17] MEDS: NICOTINE 21 MG/24 HOURS TOPICAL PATCH TD SCH (10:13)
[2017-04-17] MEDS: SENNOSIDES 8.6MG TABLET (FP) PO SCH ×2 (10:13→21:25)
[2017-04-17] MEDS: PRENATAL VITAMINS W/ FOLIC ACID TABLET (FP) PO SCH (10:13)
[2017-04-17] MEDS: LIDOCAINE 5% TOPICAL PATCH TP SCH (10:14)
[2017-04-17] MEDS: MAGNESIUM HYDROX 2400MG/30ML ORAL SUSPENSION 30 ML CUP PO PRN (13:21)
[2017-04-17] MEDS: ACETAMINOPHEN 325 MG TABLET (FP) PO PRN (17:41)
[2017-04-17] MEDS: THIAMINE HCL 100 MG TABLET (FP) PO SCH (21:25)
[2017-04-17] MEDS: QUEtiapine FUMARATE 100 MG TABLET (FP) PO SCH (21:25)
[2017-04-18] MEDS ORDERED: METHADONE HCL 40 MG DISPERSABLE TABLET PO SCH ×2 (06:00→13:42)
[2017-04-18] MEDS: DOCUSATE SODIUM 100 MG CAPSULE (FP) PO SCH ×3 (06:28→21:32)
[2017-04-18] MEDS: FERROUS SO4 325 MG TABLET (FP) PO SCH ×3 (07:46→17:25)
[2017-04-18] MEDS: risperiDONE 0.5 MG TABLET (FP) PO SCH ×2 (10:04→21:33)
[2017-04-18] MEDS: SENNOSIDES 8.6MG TABLET (FP) PO SCH ×2 (10:04→21:32)
[2017-04-18] MEDS: SERTRALINE HCL 50 MG TABLET (FP) PO SCH (10:04)
[2017-04-18] MEDS: PRENATAL VITAMINS W/ FOLIC ACID TABLET (FP) PO SCH (10:05)
[2017-04-18] MEDS: LIDOCAINE 5% TOPICAL PATCH TP SCH (10:05)
[2017-04-18] MEDS: NICOTINE 21 MG/24 HOURS TOPICAL PATCH TD SCH (10:05)
[2017-04-18] MEDS ORDERED: SODIUM PHOSPHATE/NA BIPHOS 133 ML ENEMA PR PRN (13:41)
[2017-04-18] MEDS: THIAMINE HCL 100 MG TABLET (FP) PO SCH (21:32)
[2017-04-18] MEDS: QUEtiapine FUMARATE 100 MG TABLET (FP) PO SCH (21:32)
[2017-04-19] MEDS ORDERED: METHADONE HCL 10 MG TABLET ONE (05:46)
[2017-04-19] MEDS ORDERED: METHADONE HCL 40 MG DISPERSABLE TABLET ONE (05:47)
[2017-04-19] MEDS: DOCUSATE SODIUM 100 MG CAPSULE (FP) PO SCH ×3 (06:19→21:04)
[2017-04-19] MEDS: METHADONE 40 MG, METHADONE 30 MG PO SCH (06:19)
[2017-04-19] MEDS: FERROUS SO4 325 MG TABLET (FP) PO SCH ×3 (07:10→17:01)
[2017-04-19] MEDS: NICOTINE 21 MG/24 HOURS TOPICAL PATCH TD SCH (10:00)
[2017-04-19] MEDS: LIDOCAINE 5% TOPICAL PATCH TP SCH (10:01)
[2017-04-19] MEDS: SENNOSIDES 8.6MG TABLET (FP) PO SCH ×2 (10:01→21:04)
[2017-04-19] MEDS: risperiDONE 0.5 MG TABLET (FP) PO SCH ×2 (10:02→21:05)
[2017-04-19] MEDS: PRENATAL VITAMINS W/ FOLIC ACID TABLET (FP) PO SCH (10:02)
[2017-04-19] MEDS: SERTRALINE HCL 50 MG TABLET (FP) PO SCH (10:02)
[2017-04-19] MEDS: ACETAMINOPHEN 325 MG TABLET (FP) PO PRN (10:03)
[2017-04-19] MEDS: THIAMINE HCL 100 MG TABLET (FP) PO SCH (21:04)
[2017-04-19] MEDS: QUEtiapine FUMARATE 100 MG TABLET (FP) PO SCH (21:05)
[2017-04-20] MEDS ORDERED: METHADONE HCL 40 MG DISPERSABLE TABLET ONE (03:13)
[2017-04-20] MEDS ORDERED: METHADONE HCL 10 MG TABLET ONE (03:13)
[2017-04-20] MEDS: METHADONE 40 MG, METHADONE 30 MG PO SCH (06:57)
[2017-04-20] MEDS: DOCUSATE SODIUM 100 MG CAPSULE (FP) PO SCH ×3 (06:58→21:13)
[2017-04-20] MEDS: FERROUS SO4 325 MG TABLET (FP) PO SCH ×3 (07:01→17:35)
[2017-04-20] MEDS: NICOTINE 21 MG/24 HOURS TOPICAL PATCH TD SCH (09:51)
[2017-04-20] MEDS: LIDOCAINE 5% TOPICAL PATCH TP SCH (09:51)
[2017-04-20] MEDS: SENNOSIDES 8.6MG TABLET (FP) PO SCH ×2 (09:52→21:13)
[2017-04-20] MEDS: SERTRALINE HCL 50 MG TABLET (FP) PO SCH (09:52)
[2017-04-20] MEDS: risperiDONE 0.5 MG TABLET (FP) PO SCH ×2 (09:52→21:14)
[2017-04-20] MEDS: PRENATAL VITAMINS W/ FOLIC ACID TABLET (FP) PO SCH (09:52)
[2017-04-20] MEDS: COLLOIDAL OATMEAL 1 BAR EACH TP PRN (09:54)
[2017-04-20] MEDS: ACETAMINOPHEN 325 MG TABLET (FP) PO PRN (11:03)
[2017-04-20] MEDS: MAGNESIUM HYDROX 2400MG/30ML ORAL SUSPENSION 30 ML CUP PO PRN (13:41)
[2017-04-20] MEDS: THIAMINE HCL 100 MG TABLET (FP) PO SCH (21:13)
[2017-04-20] MEDS: QUEtiapine FUMARATE 100 MG TABLET (FP) PO SCH (21:13)
[2017-04-21] MEDS ORDERED: METHADONE HCL 40 MG DISPERSABLE TABLET ONE (03:26)
[2017-04-21] MEDS ORDERED: METHADONE HCL 10 MG TABLET ONE (03:26)
[2017-04-21] MEDS: DOCUSATE SODIUM 100 MG CAPSULE (FP) PO SCH ×3 (06:19→21:16)
[2017-04-21] MEDS: METHADONE 40 MG, METHADONE 30 MG PO SCH (06:19)
[2017-04-21] MEDS: FERROUS SO4 325 MG TABLET (FP) PO SCH ×3 (07:14→17:09)
[2017-04-21] MEDS: NICOTINE 21 MG/24 HOURS TOPICAL PATCH TD SCH (09:40)
[2017-04-21] MEDS: PRENATAL VITAMINS W/ FOLIC ACID TABLET (FP) PO SCH (09:40)
[2017-04-21] MEDS: LIDOCAINE 5% TOPICAL PATCH TP SCH (09:40)
[2017-04-21] MEDS: risperiDONE 0.5 MG TABLET (FP) PO SCH ×2 (09:41→21:16)
[2017-04-21] MEDS: SENNOSIDES 8.6MG TABLET (FP) PO SCH ×2 (09:41→21:16)
[2017-04-21] MEDS: SERTRALINE HCL 50 MG TABLET (FP) PO SCH (09:41)
[2017-04-21] MEDS ORDERED: PT OWN MED DRAWER 7, Y5N ONE (10:11)
[2017-04-21] MEDS: THIAMINE HCL 100 MG TABLET (FP) PO SCH (21:16)
[2017-04-21] MEDS: diphenhydrAMINE HCL 50 MG CAPSULE PO PRN (21:16)
[2017-04-21] MEDS: QUEtiapine FUMARATE 100 MG TABLET (FP) PO SCH (21:16)
[2017-04-22] MEDS ORDERED: METHADONE HCL 40 MG DISPERSABLE TABLET ONE (03:23)
[2017-04-22] MEDS ORDERED: METHADONE HCL 10 MG TABLET ONE (03:23)
[2017-04-22] MEDS: METHADONE 40 MG, METHADONE 30 MG PO SCH (06:24)
[2017-04-22] MEDS: DOCUSATE SODIUM 100 MG CAPSULE (FP) PO SCH (06:24)
[2017-04-22 06:48] VITALS: BP 136/80; PULSE 64; TEMP 97.3
[2017-04-22] MEDS: FERROUS SO4 325 MG TABLET (FP) PO SCH (07:27)
--- NOTE | 2017-04-22 08:56 | PN ---
Psychiatric Progress Note Vital Signs: Vital Signs Period Temp Pulse Resp BP Sys/Deshpande Pulse Ox Last 24 Hr 97.3 F 64 18 136/80 Date of Session: 04/22/17 Chief Complaint:: Discharge visit HPI: Patient addressed Opioid,Cocaine dependence comorbid with PTSD. ROS: Anemia,Chronic arthritis,Low back pain. Current Medications: Active Medications Generic Name Dose Route Start Last Admin Trade Name Freq PRN Reason Stop Dose Admin Acetaminophen 650 mg 03/25/17 15:55 04/20/17 11:03 Tylenol - PO 650 mg Q4H PRN Administration PAIN Al Hydroxide/Mg Hydroxide 30 ml 03/25/17 15:55 03/29/17 07:54 Mylanta Oral Suspension - PO 30 ml Q6H PRN Administration DYSPEPSIA Colloidal Oatmeal 1 applic 04/13/17 06:51 04/20/17 09:54 Aveeno Soap - TP 1 applic DAILY PRN Administration HYGEINE Diphenhydramine HCl 50 mg 03/25/17 15:55 04/21/17 21:16 Benadryl - PO 50 mg HSMR1 PRN Administration INSOMNIA Docusate Sodium 100 mg 04/03/17 14:00 04/22/17 06:24 Colace - PO 100 mg TID KISHA Administration Eucalyptus/Menthol/Phenol/Sorbitol 1 each 03/25/17 15:55 04/12/17 18:47 Cepastat Lozenge - MM 1 each Q4H PRN Administration SORE THROAT Ferrous Sulfate 325 mg 03/26/17 17:30 04/22/17 07:27 Feosol - PO Not Given TIDCM KISHA Guaifenesin 10 ml 03/25/17 15:55 Robitussin Dm - PO Q6H PRN COUGH Hydroxyzine Pamoate 25 mg 03/25/17 15:55 Vistaril - PO Q4H PRN AGITATION Ibuprofen 600 mg 04/01/17 15:34 04/08/17 13:38 Motrin - PO 600 mg Q6H PRN Administration SEVERE PAIN Lidocaine 1 patch 03/27/17 14:30 04/21/17 09:40 Lidoderm Patch - TP 1 patch DAILY KISHA Administration Loperamide HCl 4 mg 03/25/17 15:55 Imodium - PO Q6H PRN DIARRHEA Magnesium Citrate 300 ml 03/25/17 15:55 Citroma - PO Q48H PRN CONSTIPATION Magnesium Hydroxide 30 ml 03/25/17 15:55 04/20/17 13:41 Milk Of Magnesia - PO 30 ml DAILY PRN Administration CONSTIPATION Methadone HCl 40 mg/ Methadone 70 mg 04/19/17 06:00 04/22/17 06:24 HCl 30 mg PO 04/25/17 05:59 70 mg DAILY@0600 KISHA Administration Nicotine 21 mg 03/26/17 10:00 04/21/17 09:40 Nicoderm Patch - TD Not Given DAILY KISHA Nicotine Polacrilex 4 mg 03/25/17 15:55 Nicorette Gum - BC Q2H PRN NICOTINE REPLACEMENT RX Multivit/Folic Acid/Iron 1 tab 03/26/17 10:00 04/21/17 09:40 Vitamins (Sjr) - PO 1 tab DAILY KISHA Administration Pseudoephedrine/Triprolidine 1 combo 03/25/17 15:55 Actifed - PO TID PRN NASAL CONGESTION Quetiapine Fumarate 100 mg 04/15/17 22:00 04/21/17 21:16 Seroquel - PO 100 mg HS KISHA Administration Risperidone 0.5 mg 04/10/17 15:15 04/21/17 21:16 Risperdal - PO 0.5 mg BID KISHA Administration Senna 1 tab 04/03/17 14:00 04/21/17 21:16 Senna - PO 1 tab BID KISHA Administration Sertraline HCl 50 mg 04/15/17 17:15 04/21/17 09:41 Zoloft - PO 50 mg DAILY KISHA Administration Sodium Phosphate 133 ml 04/18/17 13:41 04/18/17 14:16 Fleet Adult Rectal Enema - [place] 133 ml DAILY PRN Administration CONSTIPATION Thiamine HCl 100 mg 03/25/17 22:00 04/21/17 21:16 Vitamin B1 - PO 100 mg HS KISHA Administration Current Side Effect: No Lab tests ordered: No Lab tests reviewed: Yes Provider note:: Patient completed this program today.She has met her treatment goals and will continue to address her issues on outpatient basis at [facility] rehab program in [facility].Patient continue to find that curreent medications :Zoloft 50 mg po daily,Risperidone 0,5 po bid, Seroquel 100 mg po hs help to reduce anxiety,depression and mood instability. Scripts for 30 days provided. Supportive therapy provided focusing on support system,coping skills utilization to maintain recovery. Patient is stable for discharge today. Total face to face time:: 30 Mental Status Exam - Mental Status Exam Alert and Oriented to: Time, Place, Person Cognitive Function: Grossly Intact Patient Appearance: Well Groomed Mood: Euthymic Affect: Mood Congruent Patient Behavior: Cooperative Speech Pattern: Clear Voice Loudness: Normal Thought Process: Goal Oriented Thought Disorder: Not Present Hallucinations: Denies Suicidal Ideation: Denies Homicidal Ideation: Denies Insight/Judgement: Fair Sleep: Fair Muscle strength/Tone: Normal Gait/Station: Normal Psychiatric Treatment Plan - Problem List (1) H/O: iron deficiency anemia Current Visit: Yes (2) Methadone maintenance therapy patient Current Visit: Yes (3) Nicotine dependence Current Visit: Yes Qualifiers: Nicotine product type: cigarettes Substance use status: uncomplicated Qualified Code(s): F17.210 - Nicotine dependence, cigarettes, uncomplicated (4) Cocaine dependence Current Visit: Yes (5) PTSD (post-traumatic stress disorder) Current Visit: Yes (6) Opioid dependence Current Visit: Yes
[2017-04-22] MEDS: PRENATAL VITAMINS W/ FOLIC ACID TABLET (FP) PO SCH (09:16)
[2017-04-22] MEDS: risperiDONE 0.5 MG TABLET (FP) PO SCH (09:16)
[2017-04-22] MEDS: SERTRALINE HCL 50 MG TABLET (FP) PO SCH (09:16)
[2017-04-22] MEDS: SENNOSIDES 8.6MG TABLET (FP) PO SCH (09:16)
[2017-04-22] MEDS: LIDOCAINE 5% TOPICAL PATCH TP SCH (09:17)
[2017-04-22] MEDS: NICOTINE 21 MG/24 HOURS TOPICAL PATCH TD SCH (09:17)
== END 2017-04-22 09:27 | disposition home or self-care (01) | DRG 772 ==
LOC: YASAS 12:24 → Y3E 17:21
PROVIDERS: ADMIT Psychiatry & Neurology Psychiatry; ATTEND Psychiatry & Neurology Psychiatry
PROC: HZ42ZZZ Group Counseling for Substance Abuse Treatment, Cognitive-Behavioral (ICD-10-PCS; principal; 2017-03-25)
DX: F11.20 Opioid dependence, uncomplicated (principal); F14.20 Cocaine dependence, uncomplicated; F17.210 Nicotine dependence, cigarettes, uncomplicated; F43.10 Post-traumatic stress disorder, unspecified; D50.9 Iron deficiency anemia, unspecified; M11.9 Crystal arthropathy, unspecified; M54.5 Low back pain; J45.909 Unspecified asthma, uncomplicated
CPT/HCPCS: 36415; 72100-TC; 80053; 81003; 81015; 85027; 86593; 87389; 93005; 93010

== ENCOUNTER 2017-12-06 13:13 | Inpatient (IN) | payer OTHER ==
[2017-12-06 15:31] VITALS: BMI 24.3
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
[2017-12-06] MEDS ORDERED: P-EPHED 60MG/TRIPROLIDI 2.5MG TABLET PO PRN (16:40)
[2017-12-06] MEDS ORDERED: NICOTINE POLACRILEX 2 MG GUM BC PRN (16:40)
[2017-12-06] MEDS ORDERED: guaiFENesin/D-METHORPHAN HB 10 ML UNIT-DOSE CUPS PO PRN (16:40)
[2017-12-06] MEDS ORDERED: MENTHOL/PHENOL 1 EACH UD MM PRN (16:40)
[2017-12-06] MEDS ORDERED: hydrOXYzine PAMOATE 50 MG CAPSULE (FP) PO PRN (16:40)
[2017-12-06] MEDS ORDERED: IBUPROFEN 400 MG TABLET (FP) PO PRN (16:40)
[2017-12-06] MEDS ORDERED: MAGNESIUM CITRATE 300 ML BOTTLE PO PRN (16:40)
[2017-12-06] MEDS ORDERED: MAGNESIUM HYDROX 2400MG/30ML ORAL SUSPENSION 30 ML CUP PO PRN (16:40)
[2017-12-06] MEDS ORDERED: LOPERAMIDE HCL 2 MG CAPSULE PO PRN (16:40)
[2017-12-06] MEDS ORDERED: MAG HYDROX/AL HYDROX/SIMETH 30 ML UNIT-DOSE CUP PO PRN (16:40)
[2017-12-06] MEDS ORDERED: ALBUTEROL SO4 18 GM HFA INHALER IH PRN (16:41)
[2017-12-06] MEDS: COLLOIDAL OATMEAL 1 BAR EACH TP PRN (18:19)
[2017-12-06 20:57] LABS: URINE APPEARANCE CLEAR; URINE BILIRUBIN NEGATIVE (NEGATIVE); URINE BLOOD 1+ (NEGATIVE); URINE COLOR YELLOW; URINE GLUCOSE (UA) NEGATIVE (NEGATIVE); URINE KETONE NEGATIVE (NEGATIVE); URINE LEUK ESTERASE NEGATIVE (NEGATIVE); URINE NITRITE NEGATIVE (NEGATIVE); URINE PROTEIN NEGATIVE (NEGATIVE); URINE UROBILINOGEN NEGATIVE mg/dL (0.2-1.0)
[2017-12-06 21:04] LABS: EPI CELLS RARE /HPF (FEW); URINE MUCUS RARE
[2017-12-06] MEDS: ACETAMINOPHEN 325 MG TABLET (FP) PO PRN (21:40)
[2017-12-06] MEDS: THIAMINE HCL 100 MG TABLET (FP) PO SCH (21:40)
[2017-12-06] MEDS: QUEtiapine FUMARATE 50 MG TABLET PO SCH (21:40)
[2017-12-06] MEDS ORDERED: PNEUMOC 13-VAL CONJ-DIP CRM/PF 0.5 ML DISP.SYRIN IM ONE (22:51)
[2017-12-07] MEDS ORDERED: METHADONE HCL 10 MG TABLET PO SCH (09:00)
[2017-12-07] MEDS ORDERED: METHADONE HCL 10 MG TABLET ONE (10:10)
[2017-12-07] MEDS ORDERED: METHADONE HCL 40 MG DISPERSABLE TABLET ONE (10:11)
[2017-12-07] MEDS: METHADONE 80 MG, METHADONE 20 MG PO SCH (10:12)
[2017-12-07] MEDS: PRENATAL VITAMINS W/ FOLIC ACID TABLET (FP) PO SCH (10:12)
[2017-12-07] MEDS: NICOTINE 21 MG/24 HOURS TOPICAL PATCH TD SCH (10:13)
[2017-12-07 11:07] LABS: CHLORIDE 104 mmol/L (98-107); HEMATOCRIT 30.9 % (32.4-45.2); HEMOGLOBIN 9.4 GM/dL (10.7-15.3); MCHC 30.3 g/dl (32.0-36.0); MEAN CELL VOLUME 79.1 fl (80-96); MEAN PLT VOLUME 8.2 fl (7.5-11.1); POTASSIUM 4.4 mmol/L (3.5-5.1); RDW 18.3 % (11.6-15.6); SODIUM 140 mmol/L (136-145); WHITE BLOOD COUNT 6.3 K/mm3 (4.0-10.0)
[2017-12-07 11:14] LABS: ALBUMIN 3.6 g/dl (3.4-5.0); ALK PHOS 66 U/L (45-117); ANION GAP 8 (8-16); BILIRUBIN,TOTAL 0.4 mg/dL (0.2-1.0); BLOOD UREA NITROGEN 10 mg/dL (7-18); CALCIUM 8.6 mg/dL (8.5-10.1); CO2 28 mmol/L (21-32); CREATININE 0.8 mg/dL (0.55-1.02); GLUCOSE,RANDOM 90 mg/dL (74-106); SGOT/AST 18 U/L (15-37); SGPT/ALT 15 U/L (12-78); TOT PROT 7.5 g/dl (6.4-8.2)
[2017-12-07] MEDS ORDERED: FLU VACCINE QUAD 60 MCG/0.5 ML (MDV 17-18) IM ONE (12:00)
[2017-12-07] MEDS ORDERED: PNEUMOC 13-VAL CONJ-DIP CRM/PF 0.5 ML DISP.SYRIN IM ONE ×2 (12:00→13:30)
[2017-12-07 12:02] LABS: PLATELET COUNT 276 K/MM3 (134-434)
--- NOTE | 2017-12-07 13:38 | EKG ---
Test Reason : Blood Pressure : / mmHG Vent. Rate : 051 BPM Atrial Rate : 051 BPM P-R Int : 126 ms QRS Dur : 090 ms QT Int : 460 ms P-R-T Axes : 065 066 054 degrees QTc Int : 423 ms SINUS BRADYCARDIA WHEN COMPARED WITH ECG OF 25-MAR-2017 21:18, NO SIGNIFICANT CHANGE WAS FOUND Confirmed by ELIZABET PEREIRA MD ([id number]) on 12/07/2017 1:37:31 PM Referred By: Confirmed By:ELIZABET PEREIRA MD
[2017-12-07] MEDS: ACETAMINOPHEN 325 MG TABLET (FP) PO PRN ×2 (15:36→21:42)
[2017-12-07] MEDS: THIAMINE HCL 100 MG TABLET (FP) PO SCH (21:42)
[2017-12-07] MEDS: QUEtiapine FUMARATE 50 MG TABLET PO SCH (21:42)
[2017-12-08] MEDS ORDERED: METHADONE HCL 10 MG TABLET ONE (05:43)
[2017-12-08] MEDS ORDERED: METHADONE HCL 40 MG DISPERSABLE TABLET ONE (05:43)
[2017-12-08] MEDS: METHADONE 80 MG, METHADONE 20 MG PO SCH (06:51)
[2017-12-08] MEDS: ACETAMINOPHEN 325 MG TABLET (FP) PO PRN ×2 (06:53→21:28)
[2017-12-08] MEDS: PRENATAL VITAMINS W/ FOLIC ACID TABLET (FP) PO SCH (10:00)
[2017-12-08] MEDS: NICOTINE 21 MG/24 HOURS TOPICAL PATCH TD SCH (10:01)
[2017-12-08] MEDS: THIAMINE HCL 100 MG TABLET (FP) PO SCH (21:28)
[2017-12-08] MEDS: QUEtiapine FUMARATE 50 MG TABLET PO SCH (21:28)
[2017-12-09] MEDS ORDERED: METHADONE HCL 10 MG TABLET ONE (05:45)
[2017-12-09] MEDS ORDERED: METHADONE HCL 40 MG DISPERSABLE TABLET ONE (05:46)
[2017-12-09] MEDS: METHADONE 80 MG, METHADONE 20 MG PO SCH (06:27)
[2017-12-09] MEDS: ACETAMINOPHEN 325 MG TABLET (FP) PO PRN (07:26)
[2017-12-09] MEDS: NICOTINE 21 MG/24 HOURS TOPICAL PATCH TD SCH (10:30)
[2017-12-09] MEDS: PRENATAL VITAMINS W/ FOLIC ACID TABLET (FP) PO SCH (10:30)
[2017-12-09] MEDS: GABAPENTIN 100 MG CAPSULE (FP) PO SCH ×2 (14:53→21:41)
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
[2017-12-09] MEDS: SERTRALINE HCL 50 MG TABLET (FP) PO SCH (18:30)
[2017-12-09] MEDS: THIAMINE HCL 100 MG TABLET (FP) PO SCH (21:41)
[2017-12-09] MEDS: QUEtiapine FUMARATE 50 MG TABLET PO SCH (21:41)
[2017-12-10] MEDS ORDERED: METHADONE HCL 10 MG TABLET ONE (03:33)
[2017-12-10] MEDS ORDERED: METHADONE HCL 40 MG DISPERSABLE TABLET ONE (03:33)
[2017-12-10] MEDS: METHADONE 80 MG, METHADONE 20 MG PO SCH (06:34)
[2017-12-10] MEDS: GABAPENTIN 100 MG CAPSULE (FP) PO SCH (06:35)
[2017-12-10] MEDS ORDERED: GABAPENTIN 100 MG CAPSULE (FP) PO SCH (08:56)
[2017-12-10] MEDS: SERTRALINE HCL 50 MG TABLET (FP) PO SCH (10:33)
[2017-12-10] MEDS: PANTOPRAZOLE 40 MG TABLET (FP) PO SCH (10:33)
[2017-12-10] MEDS: NAPROXEN 500 MG TABLET (FP) PO SCH ×2 (10:33→21:32)
[2017-12-10] MEDS: PRENATAL VITAMINS W/ FOLIC ACID TABLET (FP) PO SCH (10:33)
[2017-12-10] MEDS: NICOTINE 21 MG/24 HOURS TOPICAL PATCH TD SCH (10:34)
[2017-12-10] MEDS: LIDOCAINE 5% TOPICAL PATCH TP SCH (10:34)
[2017-12-10] MEDS: FERROUS SO4 325 MG TABLET (FP) PO SCH ×2 (11:51→17:14)
[2017-12-10] MEDS: CYCLOBENZAPRINE HCL 10 MG TABLET (FP) PO SCH ×2 (13:14→21:32)
[2017-12-10] MEDS: GABAPENTIN 300 MG CAPSULE (FP) PO SCH ×2 (13:15→21:32)
[2017-12-10] MEDS: QUEtiapine FUMARATE 50 MG TABLET PO SCH (21:31)
[2017-12-10] MEDS: DOCUSATE SODIUM 100 MG CAPSULE (FP) PO SCH (21:31)
[2017-12-10] MEDS: THIAMINE HCL 100 MG TABLET (FP) PO SCH (21:32)
[2017-12-10] MEDS: LIDOCAINE PATCH REMOVAL MC SCH (21:32)
[2017-12-11] MEDS ORDERED: METHADONE HCL 40 MG DISPERSABLE TABLET ONE (03:22)
[2017-12-11] MEDS ORDERED: METHADONE HCL 10 MG TABLET ONE (03:22)
[2017-12-11] MEDS: METHADONE 80 MG, METHADONE 20 MG PO SCH (06:49)
[2017-12-11] MEDS: CYCLOBENZAPRINE HCL 10 MG TABLET (FP) PO SCH ×3 (06:50→21:34)
[2017-12-11] MEDS: GABAPENTIN 300 MG CAPSULE (FP) PO SCH ×3 (06:50→21:34)
[2017-12-11] MEDS: FERROUS SO4 325 MG TABLET (FP) PO SCH ×3 (07:05→17:25)
[2017-12-11] MEDS: LIDOCAINE 5% TOPICAL PATCH TP SCH (10:21)
[2017-12-11] MEDS: NICOTINE 21 MG/24 HOURS TOPICAL PATCH TD SCH (10:22)
[2017-12-11] MEDS: PRENATAL VITAMINS W/ FOLIC ACID TABLET (FP) PO SCH (10:23)
[2017-12-11] MEDS: NAPROXEN 500 MG TABLET (FP) PO SCH ×2 (10:23→21:34)
[2017-12-11] MEDS: PANTOPRAZOLE 40 MG TABLET (FP) PO SCH (10:23)
[2017-12-11] MEDS: SERTRALINE HCL 50 MG TABLET (FP) PO SCH (10:23)
[2017-12-11] MEDS: QUEtiapine FUMARATE 50 MG TABLET PO SCH (21:34)
[2017-12-11] MEDS: THIAMINE HCL 100 MG TABLET (FP) PO SCH (21:34)
[2017-12-11] MEDS: DOCUSATE SODIUM 100 MG CAPSULE (FP) PO SCH (21:34)
[2017-12-11] MEDS: LIDOCAINE PATCH REMOVAL MC SCH (21:35)
[2017-12-12] MEDS ORDERED: METHADONE HCL 10 MG TABLET ONE (03:30)
[2017-12-12] MEDS ORDERED: METHADONE HCL 40 MG DISPERSABLE TABLET ONE (03:31)
[2017-12-12] MEDS: METHADONE 80 MG, METHADONE 20 MG PO SCH (06:41)
[2017-12-12] MEDS: CYCLOBENZAPRINE HCL 10 MG TABLET (FP) PO SCH ×3 (06:43→21:27)
[2017-12-12] MEDS: GABAPENTIN 300 MG CAPSULE (FP) PO SCH ×3 (06:43→21:27)
[2017-12-12] MEDS: FERROUS SO4 325 MG TABLET (FP) PO SCH ×3 (07:02→17:25)
[2017-12-12] MEDS: PRENATAL VITAMINS W/ FOLIC ACID TABLET (FP) PO SCH (10:28)
[2017-12-12] MEDS: PANTOPRAZOLE 40 MG TABLET (FP) PO SCH (10:28)
[2017-12-12] MEDS: NAPROXEN 500 MG TABLET (FP) PO SCH ×2 (10:28→21:27)
[2017-12-12] MEDS: LIDOCAINE 5% TOPICAL PATCH TP SCH (10:28)
[2017-12-12] MEDS: NICOTINE 21 MG/24 HOURS TOPICAL PATCH TD SCH (10:28)
[2017-12-12] MEDS: SERTRALINE HCL 50 MG TABLET (FP) PO SCH (10:28)
[2017-12-12] MEDS ORDERED: PT OWN MED DRAWER 7, Y5N ONE (10:40)
[2017-12-12] MEDS: ACETAMINOPHEN 325 MG TABLET (FP) PO PRN (14:40)
[2017-12-12] MEDS: THIAMINE HCL 100 MG TABLET (FP) PO SCH (21:27)
[2017-12-12] MEDS: QUEtiapine FUMARATE 50 MG TABLET PO SCH (21:27)
[2017-12-12] MEDS: DOCUSATE SODIUM 100 MG CAPSULE (FP) PO SCH (21:27)
[2017-12-12] MEDS: LIDOCAINE PATCH REMOVAL MC SCH (21:28)
[2017-12-13] MEDS ORDERED: METHADONE HCL 10 MG TABLET ONE (03:55)
[2017-12-13] MEDS ORDERED: METHADONE HCL 40 MG DISPERSABLE TABLET ONE (03:56)
[2017-12-13] MEDS: METHADONE 80 MG, METHADONE 20 MG PO SCH (06:50)
[2017-12-13] MEDS: GABAPENTIN 300 MG CAPSULE (FP) PO SCH ×3 (06:51→21:27)
[2017-12-13] MEDS: CYCLOBENZAPRINE HCL 10 MG TABLET (FP) PO SCH ×3 (06:51→21:27)
[2017-12-13] MEDS: FERROUS SO4 325 MG TABLET (FP) PO SCH ×3 (07:08→17:25)
[2017-12-13] MEDS: ACETAMINOPHEN 325 MG TABLET (FP) PO PRN (08:31)
[2017-12-13] MEDS: LIDOCAINE 5% TOPICAL PATCH TP SCH (09:53)
[2017-12-13] MEDS: NICOTINE 21 MG/24 HOURS TOPICAL PATCH TD SCH (09:53)
[2017-12-13] MEDS: PRENATAL VITAMINS W/ FOLIC ACID TABLET (FP) PO SCH (09:53)
[2017-12-13] MEDS: PANTOPRAZOLE 40 MG TABLET (FP) PO SCH (09:53)
[2017-12-13] MEDS: SERTRALINE HCL 50 MG TABLET (FP) PO SCH (09:53)
[2017-12-13] MEDS: NAPROXEN 500 MG TABLET (FP) PO SCH ×2 (09:53→21:27)
[2017-12-13] MEDS: QUEtiapine FUMARATE 50 MG TABLET PO SCH (21:27)
[2017-12-13] MEDS: THIAMINE HCL 100 MG TABLET (FP) PO SCH (21:27)
[2017-12-13] MEDS: DOCUSATE SODIUM 100 MG CAPSULE (FP) PO SCH (21:27)
[2017-12-13] MEDS: LIDOCAINE PATCH REMOVAL MC SCH (21:29)
[2017-12-14] MEDS ORDERED: METHADONE HCL 10 MG TABLET PO SCH (06:00)
[2017-12-14] MEDS ORDERED: METHADONE HCL 40 MG DISPERSABLE TABLET ONE (06:35)
[2017-12-14] MEDS ORDERED: METHADONE HCL 10 MG TABLET ONE (06:35)
[2017-12-14] MEDS: METHADONE 80 MG, METHADONE 20 MG PO SCH (06:36)
[2017-12-14] MEDS: GABAPENTIN 300 MG CAPSULE (FP) PO SCH ×3 (06:37→21:25)
[2017-12-14] MEDS: CYCLOBENZAPRINE HCL 10 MG TABLET (FP) PO SCH ×3 (06:37→21:25)
[2017-12-14] MEDS: FERROUS SO4 325 MG TABLET (FP) PO SCH ×3 (07:12→17:08)
[2017-12-14] MEDS: NAPROXEN 500 MG TABLET (FP) PO SCH ×2 (10:23→21:24)
[2017-12-14] MEDS: PANTOPRAZOLE 40 MG TABLET (FP) PO SCH (10:23)
[2017-12-14] MEDS: PRENATAL VITAMINS W/ FOLIC ACID TABLET (FP) PO SCH (10:23)
[2017-12-14] MEDS: SERTRALINE HCL 50 MG TABLET (FP) PO SCH (10:23)
[2017-12-14] MEDS: NICOTINE 21 MG/24 HOURS TOPICAL PATCH TD SCH (10:24)
[2017-12-14] MEDS: LIDOCAINE 5% TOPICAL PATCH TP SCH (10:25)
[2017-12-14] MEDS: DOCUSATE SODIUM 100 MG CAPSULE (FP) PO SCH (21:24)
[2017-12-14] MEDS: THIAMINE HCL 100 MG TABLET (FP) PO SCH (21:25)
[2017-12-14] MEDS: QUEtiapine FUMARATE 50 MG TABLET PO SCH (21:25)
[2017-12-14] MEDS: LIDOCAINE PATCH REMOVAL MC SCH (21:26)
[2017-12-15] MEDS ORDERED: METHADONE HCL 10 MG TABLET ONE (03:09)
[2017-12-15] MEDS ORDERED: METHADONE HCL 40 MG DISPERSABLE TABLET ONE (03:09)
[2017-12-15] MEDS: METHADONE 80 MG, METHADONE 20 MG PO SCH (06:59)
[2017-12-15] MEDS: GABAPENTIN 300 MG CAPSULE (FP) PO SCH ×3 (07:00→21:36)
[2017-12-15] MEDS: CYCLOBENZAPRINE HCL 10 MG TABLET (FP) PO SCH ×3 (07:00→21:36)
[2017-12-15] MEDS: FERROUS SO4 325 MG TABLET (FP) PO SCH ×3 (07:00→17:37)
[2017-12-15] MEDS: LIDOCAINE 5% TOPICAL PATCH TP SCH (09:57)
[2017-12-15] MEDS: PRENATAL VITAMINS W/ FOLIC ACID TABLET (FP) PO SCH (09:57)
[2017-12-15] MEDS: NICOTINE 21 MG/24 HOURS TOPICAL PATCH TD SCH (09:57)
[2017-12-15] MEDS: NAPROXEN 500 MG TABLET (FP) PO SCH ×2 (09:58→21:36)
[2017-12-15] MEDS: PANTOPRAZOLE 40 MG TABLET (FP) PO SCH (09:58)
[2017-12-15] MEDS: SERTRALINE HCL 50 MG TABLET (FP) PO SCH (09:58)
[2017-12-15] MEDS: ACETAMINOPHEN 325 MG TABLET (FP) PO PRN (10:13)
[2017-12-15] MEDS ORDERED: PT OWN MED DRAWER 7, Y5N ONE (10:19)
[2017-12-15] MEDS: QUEtiapine FUMARATE 50 MG TABLET PO SCH (21:36)
[2017-12-15] MEDS: THIAMINE HCL 100 MG TABLET (FP) PO SCH (21:36)
[2017-12-15] MEDS: DOCUSATE SODIUM 100 MG CAPSULE (FP) PO SCH (21:36)
[2017-12-15] MEDS: LIDOCAINE PATCH REMOVAL MC SCH (21:37)
[2017-12-16] MEDS ORDERED: METHADONE HCL 10 MG TABLET ONE (03:10)
[2017-12-16] MEDS ORDERED: METHADONE HCL 40 MG DISPERSABLE TABLET ONE (03:10)
[2017-12-16] MEDS: METHADONE 80 MG, METHADONE 20 MG PO SCH (06:38)
[2017-12-16] MEDS: CYCLOBENZAPRINE HCL 10 MG TABLET (FP) PO SCH ×3 (06:39→21:34)
[2017-12-16] MEDS: GABAPENTIN 300 MG CAPSULE (FP) PO SCH ×3 (06:39→21:34)
[2017-12-16] MEDS: FERROUS SO4 325 MG TABLET (FP) PO SCH ×3 (07:11→17:25)
[2017-12-16] MEDS ORDERED: PT OWN MED DRAWER 7, Y5N ONE (09:01)
[2017-12-16] MEDS: LIDOCAINE 5% TOPICAL PATCH TP SCH (09:09)
[2017-12-16] MEDS: PANTOPRAZOLE 40 MG TABLET (FP) PO SCH (09:09)
[2017-12-16] MEDS: NAPROXEN 500 MG TABLET (FP) PO SCH ×2 (09:09→21:33)
[2017-12-16] MEDS: PRENATAL VITAMINS W/ FOLIC ACID TABLET (FP) PO SCH (09:09)
[2017-12-16] MEDS: SERTRALINE HCL 50 MG TABLET (FP) PO SCH (09:09)
[2017-12-16] MEDS: NICOTINE 21 MG/24 HOURS TOPICAL PATCH TD SCH (09:10)
[2017-12-16] MEDS: ACETAMINOPHEN 325 MG TABLET (FP) PO PRN (10:26)
[2017-12-16] MEDS: THIAMINE HCL 100 MG TABLET (FP) PO SCH (21:33)
[2017-12-16] MEDS: DOCUSATE SODIUM 100 MG CAPSULE (FP) PO SCH (21:33)
[2017-12-16] MEDS: QUEtiapine FUMARATE 50 MG TABLET PO SCH (21:34)
[2017-12-16] MEDS: LIDOCAINE PATCH REMOVAL MC SCH (21:35)
[2017-12-17] MEDS ORDERED: METHADONE HCL 40 MG DISPERSABLE TABLET ONE (03:26)
[2017-12-17] MEDS ORDERED: METHADONE HCL 10 MG TABLET ONE (03:26)
[2017-12-17] MEDS: METHADONE 80 MG, METHADONE 20 MG PO SCH (06:33)
[2017-12-17] MEDS: GABAPENTIN 300 MG CAPSULE (FP) PO SCH ×3 (06:34→21:39)
[2017-12-17] MEDS: CYCLOBENZAPRINE HCL 10 MG TABLET (FP) PO SCH ×3 (06:34→21:39)
[2017-12-17] MEDS: COLLOIDAL OATMEAL 1 BAR EACH TP PRN (06:37)
[2017-12-17] MEDS: FERROUS SO4 325 MG TABLET (FP) PO SCH ×3 (07:17→18:30)
[2017-12-17] MEDS: NAPROXEN 500 MG TABLET (FP) PO SCH ×2 (10:34→21:39)
[2017-12-17] MEDS: PANTOPRAZOLE 40 MG TABLET (FP) PO SCH (10:35)
[2017-12-17] MEDS: SERTRALINE HCL 50 MG TABLET (FP) PO SCH (10:35)
[2017-12-17] MEDS: PRENATAL VITAMINS W/ FOLIC ACID TABLET (FP) PO SCH (10:35)
[2017-12-17] MEDS: NICOTINE 21 MG/24 HOURS TOPICAL PATCH TD SCH (10:35)
[2017-12-17] MEDS: AMMONIUM LACTATE 12% LOTION 225 GM BOTTLE TP PRN (10:36)
[2017-12-17] MEDS: LIDOCAINE 5% TOPICAL PATCH TP SCH (10:36)
[2017-12-17] MEDS: THIAMINE HCL 100 MG TABLET (FP) PO SCH (21:38)
[2017-12-17] MEDS: QUEtiapine FUMARATE 50 MG TABLET PO SCH (21:39)
[2017-12-17] MEDS: DOCUSATE SODIUM 100 MG CAPSULE (FP) PO SCH (21:39)
[2017-12-17] MEDS: LIDOCAINE PATCH REMOVAL MC SCH (21:40)
[2017-12-18] MEDS ORDERED: METHADONE HCL 10 MG TABLET ONE (03:31)
[2017-12-18] MEDS ORDERED: METHADONE HCL 40 MG DISPERSABLE TABLET ONE (03:31)
[2017-12-18] MEDS: GABAPENTIN 300 MG CAPSULE (FP) PO SCH ×3 (06:54→21:39)
[2017-12-18] MEDS: CYCLOBENZAPRINE HCL 10 MG TABLET (FP) PO SCH ×3 (06:54→21:37)
[2017-12-18] MEDS: METHADONE 80 MG, METHADONE 20 MG PO SCH (06:55)
[2017-12-18] MEDS: FERROUS SO4 325 MG TABLET (FP) PO SCH ×3 (07:36→17:20)
[2017-12-18] MEDS: LIDOCAINE 5% TOPICAL PATCH TP SCH (09:48)
[2017-12-18] MEDS: NAPROXEN 500 MG TABLET (FP) PO SCH ×2 (09:48→21:37)
[2017-12-18] MEDS: NICOTINE 21 MG/24 HOURS TOPICAL PATCH TD SCH (09:48)
[2017-12-18] MEDS: PANTOPRAZOLE 40 MG TABLET (FP) PO SCH (09:49)
[2017-12-18] MEDS: PRENATAL VITAMINS W/ FOLIC ACID TABLET (FP) PO SCH (09:49)
[2017-12-18] MEDS: SERTRALINE HCL 50 MG TABLET (FP) PO SCH (09:49)
[2017-12-18] MEDS ORDERED: METHADONE HCL 40 MG DISPERSABLE TABLET PO SCH (10:30)
--- NOTE | 2017-12-18 10:31 | PN ---
[facility] Progress Note (SOAP) Subjective: reports oversedated on methadone 100mg daily, would like to go own on dose Objective: 12/18/17 10:30 Vital Signs - 24 hr 12/18/17 12/18/17 12/18/17 00:30 03:30 07:41 Temperature 97.8 F Pulse Rate 75 Respiratory 18 18 18 Rate Blood Pressure 113/64 labs reveiwed Assessment: 12/18/17 10:31 decrease dose by 10% per week, 90mg starting tomrorow. d/c decrease if cravings or withdrawal sx
[2017-12-18] MEDS: QUEtiapine FUMARATE 50 MG TABLET PO SCH (21:37)
[2017-12-18] MEDS: THIAMINE HCL 100 MG TABLET (FP) PO SCH (21:37)
[2017-12-18] MEDS: DOCUSATE SODIUM 100 MG CAPSULE (FP) PO SCH (21:38)
[2017-12-18] MEDS: LIDOCAINE PATCH REMOVAL MC SCH (21:39)
[2017-12-19] MEDS ORDERED: METHADONE 80 MG, METHADONE 10 MG PO SCH (06:00)
[2017-12-19] MEDS ORDERED: METHADONE HCL 10 MG TABLET ONE (06:03)
[2017-12-19] MEDS ORDERED: METHADONE HCL 40 MG DISPERSABLE TABLET ONE (06:03)
[2017-12-19] MEDS: GABAPENTIN 300 MG CAPSULE (FP) PO SCH ×3 (06:22→21:28)
[2017-12-19] MEDS: CYCLOBENZAPRINE HCL 10 MG TABLET (FP) PO SCH ×3 (06:22→21:28)
[2017-12-19] MEDS: FERROUS SO4 325 MG TABLET (FP) PO SCH ×3 (07:05→17:25)
[2017-12-19] MEDS: NAPROXEN 500 MG TABLET (FP) PO SCH ×2 (10:12→21:28)
[2017-12-19] MEDS: NICOTINE 21 MG/24 HOURS TOPICAL PATCH TD SCH (10:12)
[2017-12-19] MEDS: PRENATAL VITAMINS W/ FOLIC ACID TABLET (FP) PO SCH (10:12)
[2017-12-19] MEDS: PANTOPRAZOLE 40 MG TABLET (FP) PO SCH (10:12)
[2017-12-19] MEDS: LIDOCAINE 5% TOPICAL PATCH TP SCH (10:12)
[2017-12-19] MEDS: SERTRALINE HCL 50 MG TABLET (FP) PO SCH (10:12)
--- NOTE | 2017-12-19 12:05 | PN ---
[facility] Progress Note (SOAP) Subjective: c/o bialteral ankle swelling x 1 week Objective: 12/19/17 12:03 Vital Signs - 24 hr 12/19/17 12/19/17 00:30 07:04 Temperature 97.7 F Pulse Rate 68 Respiratory 18 18 Rate Blood Pressure 116/76 Laboratory Tests 12/06/17 12/07/17 12/07/17 19:00 08:00 08:00 WBC 6.3 RBC 3.90 Hgb 9.4 L Hct 30.9 L MCV 79.1 L MCH 24.0 L MCHC 30.3 L RDW 18.3 H D Plt Count 276 MPV 8.2 Platelet Comment Sodium Potassium Chloride Carbon Dioxide Anion Gap BUN Creatinine Creat Clearance w eGFR Random Glucose Calcium Total Bilirubin AST ALT Alkaline Phosphatase Total Protein Albumin Urine Color Yellow Urine Appearance Clear Urine pH 5.0 Ur Specific Combes 1.013 Urine Protein Negative Urine Glucose (UA) Negative Urine Ketones Negative Urine Blood 1+ H Urine Nitrite Negative Urine Bilirubin Negative Urine Urobilinogen Negative Ur Leukocyte Esterase Negative Urine WBC (Auto) <1 Urine RBC (Auto) 3 Ur Epithelial Cells Rare Urine Mucus Rare RPR Titer HIV 1&2 Antibody Screen Negative HIV P24 Antigen Negative 12/07/17 12/07/17 08:00 08:00 WBC RBC Hgb Hct MCV MCH MCHC RDW Plt Count MPV Platelet Comment Sodium 140 Potassium 4.4 Chloride 104 Carbon Dioxide 28 Anion Gap 8 BUN 10 D Creatinine 0.8 Creat Clearance w eGFR > 60 Random Glucose 90 Calcium 8.6 Total Bilirubin 0.4 D AST 18 ALT 15 D Alkaline Phosphatase 66 D Total Protein 7.5 Albumin 3.6 Urine Color Urine Appearance Urine pH Ur Specific Combes Urine Protein Urine Glucose (UA) Urine Ketones Urine Blood Urine Nitrite Urine Bilirubin Urine Urobilinogen Ur Leukocyte Esterase Urine WBC (Auto) Urine RBC (Auto) Ur Epithelial Cells Urine Mucus RPR Titer Nonreactive HIV 1&2 Antibody Screen HIV P24 Antigen 1+ bilateral ankle eema noted Assessment: 12/19/17 12:05 ankle edema decreasem ethadone hctz, elevate legs, no h/o traum no infection noted. non tender
[2017-12-19] MEDS: HYDROCHLOROTHIAZIDE 12.5 MG CAPSULE (FP) PO SCH (13:05)
[2017-12-19] MEDS: DOCUSATE SODIUM 100 MG CAPSULE (FP) PO SCH (21:28)
[2017-12-19] MEDS: QUEtiapine FUMARATE 50 MG TABLET PO SCH (21:28)
[2017-12-19] MEDS: THIAMINE HCL 100 MG TABLET (FP) PO SCH (21:28)
[2017-12-19] MEDS: LIDOCAINE PATCH REMOVAL MC SCH (21:30)
[2017-12-20] MEDS: METHADONE HCL 40 MG DISPERSABLE TABLET PO SCH (06:28)
[2017-12-20] MEDS: GABAPENTIN 300 MG CAPSULE (FP) PO SCH ×3 (06:30→21:32)
[2017-12-20] MEDS: CYCLOBENZAPRINE HCL 10 MG TABLET (FP) PO SCH ×3 (06:30→21:32)
[2017-12-20] MEDS: FERROUS SO4 325 MG TABLET (FP) PO SCH ×3 (07:05→17:06)
[2017-12-20] MEDS ORDERED: PT OWN MED DRAWER 7, Y5N ONE (08:51)
[2017-12-20] MEDS: NICOTINE 21 MG/24 HOURS TOPICAL PATCH TD SCH (10:24)
[2017-12-20] MEDS: AMMONIUM LACTATE 12% LOTION 225 GM BOTTLE TP PRN (10:24)
[2017-12-20] MEDS: NAPROXEN 500 MG TABLET (FP) PO SCH ×2 (10:25→21:32)
[2017-12-20] MEDS: PRENATAL VITAMINS W/ FOLIC ACID TABLET (FP) PO SCH (10:25)
[2017-12-20] MEDS: PANTOPRAZOLE 40 MG TABLET (FP) PO SCH (10:25)
[2017-12-20] MEDS: LIDOCAINE 5% TOPICAL PATCH TP SCH (10:25)
[2017-12-20] MEDS: HYDROCHLOROTHIAZIDE 12.5 MG CAPSULE (FP) PO SCH (10:25)
[2017-12-20] MEDS: SERTRALINE HCL 50 MG TABLET (FP) PO SCH (10:25)
[2017-12-20] MEDS: ACETAMINOPHEN 325 MG TABLET (FP) PO PRN (13:10)
[2017-12-20] MEDS: DOCUSATE SODIUM 100 MG CAPSULE (FP) PO SCH (21:31)
[2017-12-20] MEDS: QUEtiapine FUMARATE 50 MG TABLET PO SCH (21:32)
[2017-12-20] MEDS: LIDOCAINE PATCH REMOVAL MC SCH (21:32)
[2017-12-20] MEDS: THIAMINE HCL 100 MG TABLET (FP) PO SCH (21:32)
[2017-12-21] MEDS: GABAPENTIN 300 MG CAPSULE (FP) PO SCH ×3 (06:18→21:27)
[2017-12-21] MEDS: METHADONE HCL 40 MG DISPERSABLE TABLET PO SCH (06:18)
[2017-12-21] MEDS: CYCLOBENZAPRINE HCL 10 MG TABLET (FP) PO SCH ×3 (06:18→21:27)
[2017-12-21] MEDS: FERROUS SO4 325 MG TABLET (FP) PO SCH ×3 (07:24→17:30)
[2017-12-21] MEDS: SERTRALINE HCL 50 MG TABLET (FP) PO SCH (10:17)
[2017-12-21] MEDS: HYDROCHLOROTHIAZIDE 12.5 MG CAPSULE (FP) PO SCH (10:17)
[2017-12-21] MEDS: LIDOCAINE 5% TOPICAL PATCH TP SCH (10:17)
[2017-12-21] MEDS: PRENATAL VITAMINS W/ FOLIC ACID TABLET (FP) PO SCH (10:17)
[2017-12-21] MEDS: PANTOPRAZOLE 40 MG TABLET (FP) PO SCH (10:17)
[2017-12-21] MEDS: NICOTINE 21 MG/24 HOURS TOPICAL PATCH TD SCH (10:17)
[2017-12-21] MEDS: NAPROXEN 500 MG TABLET (FP) PO SCH ×2 (10:17→21:27)
[2017-12-21] MEDS: QUEtiapine FUMARATE 50 MG TABLET PO SCH (21:27)
[2017-12-21] MEDS: DOCUSATE SODIUM 100 MG CAPSULE (FP) PO SCH (21:27)
[2017-12-21] MEDS: THIAMINE HCL 100 MG TABLET (FP) PO SCH (21:28)
[2017-12-21] MEDS: LIDOCAINE PATCH REMOVAL MC SCH (21:28)
[2017-12-22] MEDS: METHADONE HCL 40 MG DISPERSABLE TABLET PO SCH (06:35)
[2017-12-22] MEDS: CYCLOBENZAPRINE HCL 10 MG TABLET (FP) PO SCH ×3 (06:36→21:43)
[2017-12-22] MEDS: GABAPENTIN 300 MG CAPSULE (FP) PO SCH ×3 (06:36→21:43)
[2017-12-22] MEDS: FERROUS SO4 325 MG TABLET (FP) PO SCH ×3 (07:32→17:16)
[2017-12-22] MEDS: HYDROCHLOROTHIAZIDE 12.5 MG CAPSULE (FP) PO SCH (09:58)
[2017-12-22] MEDS: LIDOCAINE 5% TOPICAL PATCH TP SCH (09:58)
[2017-12-22] MEDS: NICOTINE 21 MG/24 HOURS TOPICAL PATCH TD SCH (09:59)
[2017-12-22] MEDS: PANTOPRAZOLE 40 MG TABLET (FP) PO SCH (09:59)
[2017-12-22] MEDS: SERTRALINE HCL 50 MG TABLET (FP) PO SCH (09:59)
[2017-12-22] MEDS: NAPROXEN 500 MG TABLET (FP) PO SCH ×2 (09:59→21:43)
[2017-12-22] MEDS: PRENATAL VITAMINS W/ FOLIC ACID TABLET (FP) PO SCH (09:59)
[2017-12-22] MEDS: DOCUSATE SODIUM 100 MG CAPSULE (FP) PO SCH (21:43)
[2017-12-22] MEDS: THIAMINE HCL 100 MG TABLET (FP) PO SCH (21:43)
[2017-12-22] MEDS: QUEtiapine FUMARATE 50 MG TABLET PO SCH (21:43)
[2017-12-22] MEDS: LIDOCAINE PATCH REMOVAL MC SCH (21:45)
[2017-12-23] MEDS: METHADONE HCL 40 MG DISPERSABLE TABLET PO SCH (06:37)
[2017-12-23] MEDS: CYCLOBENZAPRINE HCL 10 MG TABLET (FP) PO SCH ×3 (06:38→21:46)
[2017-12-23] MEDS: GABAPENTIN 300 MG CAPSULE (FP) PO SCH ×3 (06:38→21:46)
[2017-12-23] MEDS: FERROUS SO4 325 MG TABLET (FP) PO SCH ×3 (07:35→17:35)
[2017-12-23] MEDS: NAPROXEN 500 MG TABLET (FP) PO SCH ×2 (10:12→21:46)
[2017-12-23] MEDS: PANTOPRAZOLE 40 MG TABLET (FP) PO SCH (10:12)
[2017-12-23] MEDS: PRENATAL VITAMINS W/ FOLIC ACID TABLET (FP) PO SCH (10:13)
[2017-12-23] MEDS: NICOTINE 21 MG/24 HOURS TOPICAL PATCH TD SCH (10:13)
[2017-12-23] MEDS: HYDROCHLOROTHIAZIDE 12.5 MG CAPSULE (FP) PO SCH (10:13)
[2017-12-23] MEDS: LIDOCAINE 5% TOPICAL PATCH TP SCH (10:13)
[2017-12-23] MEDS: SERTRALINE HCL 50 MG TABLET (FP) PO SCH (10:13)
[2017-12-23] MEDS: ACETAMINOPHEN 325 MG TABLET (FP) PO PRN (13:20)
[2017-12-23] MEDS ORDERED: HYDROCHLOROTHIAZIDE 12.5 MG CAPSULE (FP) PO SCH (14:19)
[2017-12-23] MEDS: THIAMINE HCL 100 MG TABLET (FP) PO SCH (21:46)
[2017-12-23] MEDS: DOCUSATE SODIUM 100 MG CAPSULE (FP) PO SCH (21:46)
[2017-12-23] MEDS: QUEtiapine FUMARATE 50 MG TABLET PO SCH (21:46)
[2017-12-23] MEDS: LIDOCAINE PATCH REMOVAL MC SCH (21:47)
[2017-12-24] MEDS: METHADONE HCL 40 MG DISPERSABLE TABLET PO SCH (06:33)
[2017-12-24] MEDS: GABAPENTIN 300 MG CAPSULE (FP) PO SCH (06:34)
[2017-12-24] MEDS: CYCLOBENZAPRINE HCL 10 MG TABLET (FP) PO SCH (06:34)
[2017-12-24 07:03] VITALS: TEMP 97.7
[2017-12-24] MEDS: FERROUS SO4 325 MG TABLET (FP) PO SCH (07:53)
[2017-12-24 09:01] VITALS: BP 111/77; PULSE 89
--- NOTE | 2017-12-24 09:45 | PN ---
[facility] Progress Note Note: Patient completed this program.She has met her treatment goals partially ( Managed Care discharge).Patient will continue to address her issues on outpatient basis.She will continue to take her medications as per plan.Scripts for Zoloft,Neurontin and Seroquel provided.Patient is stable for discharge.
[2017-12-24] MEDS: LIDOCAINE 5% TOPICAL PATCH TP SCH (09:50)
[2017-12-24] MEDS: NICOTINE 21 MG/24 HOURS TOPICAL PATCH TD SCH (09:51)
[2017-12-24] MEDS: SERTRALINE HCL 50 MG TABLET (FP) PO SCH (09:51)
[2017-12-24] MEDS: PANTOPRAZOLE 40 MG TABLET (FP) PO SCH (09:51)
[2017-12-24] MEDS: NAPROXEN 500 MG TABLET (FP) PO SCH (09:51)
[2017-12-24] MEDS: PRENATAL VITAMINS W/ FOLIC ACID TABLET (FP) PO SCH (09:51)
== END 2017-12-24 10:35 | disposition home or self-care (01) | DRG 772 ==
LOC: YASAS 13:13 → Y3E 16:04
PROVIDERS: ADMIT Psychiatry & Neurology Psychiatry; ATTEND Psychiatry & Neurology Psychiatry
PROC: HZ42ZZZ Group Counseling for Substance Abuse Treatment, Cognitive-Behavioral (ICD-10-PCS; principal; 2017-12-06)
DX: F11.20 Opioid dependence, uncomplicated (principal); F14.20 Cocaine dependence, uncomplicated; F17.210 Nicotine dependence, cigarettes, uncomplicated; F43.10 Post-traumatic stress disorder, unspecified; J45.909 Unspecified asthma, uncomplicated; M19.90 Unspecified osteoarthritis, unspecified site; E04.9 Nontoxic goiter, unspecified; M41.9 Scoliosis, unspecified; R60.0 Localized edema; M54.9 Dorsalgia, unspecified; G89.29 Other chronic pain; D50.9 Iron deficiency anemia, unspecified; R00.1 Bradycardia, unspecified; Z91.013 Allergy to seafood; Z91.018 Allergy to other foods
CPT/HCPCS: 36415; 80053; 81003; 81015; 85027; 86593; 87389; 90670; 93005; 93010